=== PATIENT | female | born 1955 | race Caucasian/White ===

== ENCOUNTER 2022-01-17 07:05 | Emergency (ER) | payer MEDICARE, MEDICAID, SELFPAY ==
[2022-01-17] VITALS (10 sets, daily range): BP systolic 93–115; BP diastolic 62–76; PULSE 77–108; RESP 16–25; TEMP 37.5; O2SAT 93–97
--- NOTE | ~2022-01-17 | CT_ITS ---
EXAMINATION: CT brain wo con DATE: 01/17/2022 08:07 INDICATION: Slurred speech. TECHNIQUE: Computed tomography (CT) of the head was performed without intravenous contrast. The mA wa s adjusted according to patient size. Iterative reconstruction technique was employed. The dose-lengt h product was 605.33 mGy-cm. COMPARISON: None FINDINGS: There are scattered areas of low attenuation in the cerebral white matter. There is an old infarct in left frontal lobe. There are old infarcts in the bilateral basal ganglia. There are change s of left suboccipital craniectomy. There are 2 aneurysm clips to the left of the cervical spinal cor d. There are old infarcts in the cerebellum bilaterally. There is an old infarct in the anita. There a re old infarcts in the bilateral basal ganglia. There is no intracranial hemorrhage, acute infarction , or abnormal intracranial mass lesion. The ventricles are normal in size. There is mild mucosal thic kening in the paranasal sinuses. The orbits are normal. There are changes of right mastoidectomy. IMPRESSION: 1. Multiple old infarcts in the brain. 2. Extensive nonspecific cerebral white matter disease, which likely represents chronic small vessel ischemic disease. Reviewed, dictated and finalized at location B.
--- NOTE | ~2022-01-17 | XR_ITS ---
EXAMINATION: XR chest 2V DATE: 01/17/2022 08:13 INDICATION: Weakness TECHNIQUE: AP and lateral views of the chest are obtained. COMPARISON: None available FINDINGS: The lungs are free of acute opacities. No pleural effusion or pneumothorax. The cardiomedia stinal silhouette is normal. There is moderate thoracic spondylosis. Changes of anterior fusion are n oted in the lower cervical spine are noted. IMPRESSION: 1. No acute cardiopulmonary abnormality. Reviewed, dictated and finalized at location A.
--- NOTE | 2022-01-17 07:19 | ED.GENADULT ---
HPI - General Adult General Chief complaint: Weakness Stated complaint: gen weak, flu shot yest Time Seen by Provider: 01/17/22 07:06 History of Present Illness HPI narrative: 66-year-old female presents from the [facility]. Patient states that she is here because she wet myself . Upon obtaining further details of history patient states that she wet herself last night while in bed. She also admits that after she used the restroom she felt too weak to get off the toilet. The weakness was all over and she is unable to discern how long she has been experiencing the symptoms. Patient is a poor historian. No further history at this time. Related Data Home Medications Medication Instructions Recorded Confirmed gabapentin 300 mg capsule mg 01/17/22 hydrochlorothiazide 12.5 mg tablet mg 01/17/22 lisinopril 20 mg tablet mg 01/17/22 quetiapine 25 mg tablet mg 01/17/22 01/17/22 Allergies Allergy/AdvReac Type Severity Reaction Status Date / Time prochlorperazine Allergy Unknown Verified 01/17/22 06:48 [From Compazine] Review of Systems Review of Systems: CONSTITUTIONAL: Denies fever, chills, or sweats. EYES: Denies visual changes, redness, or discharge. ENT: Denies rhinorrhea, congestion, sore throat, or otalgia. CARDIOVASCULAR: Denies chest pain, palpitations, or edema. RESPIRATORY: Denies cough or dyspnea. GASTROINTESTINAL: Denies abdominal pain, nausea, vomiting, or diarrhea. GENITOURINARY: Denies dysuria or hematuria. SKIN: Denies rash or itching. MUSCULOSKELETAL: Denies back pain, joint pain, or myalgia. NEUROLOGIC: Denies headache, numbness, or weakness. PSYCHIATRIC: Denies anxiety or depression. Exam Narrative: GENERAL: Well-appearing, well-nourished, and in no acute distress. HEAD: Normocephalic, atraumatic. EYES: PERRLA and EOMI. ENT: Nares clear, no rhinorrhea or epistaxis. Mucous membranes moist. NECK: Supple. CHEST: Clear to auscultation. No respiratory distress. HEART: Regular rate and rhythm. No murmur heard. Normal peripheral pulses. ABDOMEN: Soft, nontender, nondistended, normal active bowel sounds. EXTREMITIES: Normal range of motion. No edema. SKIN: Warm, dry, no rash. NEURO: No focal deficits. Alert and disoriented. PSYCH: Normal mood and affect. Course Vital Signs Vital signs: Vital Signs Temperature 99.5 F 01/17/22 06:45 Temperature 99.5 F 01/17/22 06:45 Pulse Rate 95 01/17/22 10:00 Respiratory Rate 21 H 01/17/22 10:00 Blood Pressure 104/65 01/17/22 10:00 Pulse Oximetry 97 01/17/22 07:48 Medical Decision Making MDM Narrative Medical decision making narrative: Work-up is grossly unremarkable including negative chest x-ray, CT head with only chronic findings. Patient has dressed herself and is sitting on the end of the bed requesting discharge home. This is reasonable as her work-up is reassuring. She has been encouraged to follow-up with PCP. Vital Signs Vital Signs: Vital Signs Temperature 99.5 F 01/17/22 06:45 Temperature 99.5 F 01/17/22 06:45 Pulse Rate 95 01/17/22 10:00 Respiratory Rate 21 H 01/17/22 10:00 Blood Pressure 104/65 01/17/22 10:00 Pulse Oximetry 97 01/17/22 07:48 Lab Data Result diagrams: 01/17/22 08:34 01/17/22 08:34 Labs: Lab Results 01/17/22 01/17/22 01/17/22 Range/Units 08:34 08:34 08:34 WBC 7.4 (4.5-10.0) K/mm3 RBC 4.30 (4.2-5.4) M/mm3 Hgb 12.8 (12.0-15.0) g/dL Hct 38.7 (37.0-47.0) % MCV 90.0 (80-100) fl MCH 29.8 (26-34) pg MCHC 33.1 (32-36) g/dl RDW 12.8 (11.5-14.5) % Plt Count 301 (150-375) k/mm3 MPV 9.2 (7.4-10.4) fl Immature Gran % (Auto) 0.3 (0-0.5) % Neut % (Auto) 83.3 H (45.5-73.1) % Lymph % (Auto) 7.2 L (18.3-44.2) % Payne % (Auto) 8.0 (2.6-8.5) % Eos % (Auto) 0.8 (0-4.4) % Baso % (Auto) 0.4 (0.2-1.2) % Lymph # (Auto) 0.53 L (0.9-3.2) K/mm3 Payne # (Auto) 0
--- NOTE | 2022-01-17 07:27 | ECG_ITS ---
Measurements Intervals [place] Rate: 93 P: 49 [place]: 137 QRS: 52 QRSD: 85 T: 66 QT: 355 QTc: 443 Interpretive Statements SINUS RHYTHM NONSPECIFIC ST & T-WAVE ABNORMALITY NO PREVIOUS ECG AVAILABLE FOR COMPARISON Electronically Signed On 01-17-2022 17:22:00 CDT by Sharon Dunn M.D.
--- NOTE | 2022-01-17 07:55 | PC.NURSE ---
pt taken to CT scan at this time
[2022-01-17 08:45] LABS: Basophils Percent Auto 0.4 % (0.2-1.2); Eosinophils Absolute Auto 0.1 K/mm3 (0-0.3); Eosinophils Percent Auto 0.8 % (0-4.4); Hematocrit 38.7 % (37.0-47.0); Hemoglobin 12.8 g/dL (12.0-15.0); Immature Granulocyte Absolute 0.02 K/mm3 (0.00-0.031); Immature Granulocyte Percent A 0.3 % (0-0.5); Lymphocytes Absolute Auto 0.53 K/mm3 (0.9-3.2); Lymphocytes Percent Auto 7.2 % (18.3-44.2); Mean Corpuscular HGB Conc 33.1 g/dl (32-36); Mean Corpuscular Hemoglobin 29.8 pg (26-34); Mean Platelet Volume 9.2 fl (7.4-10.4); Monocytes Absolute Auto 0.6 K/mm3 (0.1-0.6); Neutrophils Absolute Auto 6.2 K/mm3 (1.3-6.7); Neutrophils Percent Auto 83.3 % (45.5-73.1); Platelet Count Result 301 k/mm3 (150-375); Red Cell Distribution Width 12.8 % (11.5-14.5); White Blood Count 7.4 K/mm3 (4.5-10.0)
[2022-01-17 08:54] LABS: Anion Gap 12 mmol/L (8-16); Blood Urea Nitrogen 37 mg/dL (7-17); Calcium 9.1 mg/dL (8.4-10.2); Carbon Dioxide 28 mmol/L (22-30); Chloride 98 mmol/L (98-107); Estimated CRCL calculation 41 ml/min; Estimated Glomerular Filt Rate 56; Glucose 96 mg/dL (65-110); Magnesium 2.3 mg/dL (1.6-2.3); Potassium 3.8 mmol/L (3.4-5.0); Sodium 138 mmol/L (137-145)
[2022-01-17 09:02] LABS: NT Pro B Type Natriuretic Pept 239 pg/mL (5-100)
[2022-01-17 09:09] LABS: Appearance Urine Clear (Clear); Bilirubin Urine Negative (Negative); Blood Urine Negative (Negative); Color Urine Yellow (Yellow); Glucose Urine UA Negative (Negative); Ketones Urine Negative (Negative); Leukocyte Esterase Ur Negative LEU/UL (Negative); Nitrate Urine Negative (Negative); Protein Urine Negative (Negative); Specific Grav Ur 1.025 (1.001-1.035); Urobilinogen Urine 0.2 mg/dL (<2.0); pH Urine 5.5 (5.0-9.0)
[2022-01-17 09:16] LABS: Digoxin < 0.4 ng/mL (0.8-2.0)
[2022-01-17 09:36] LABS: Add Urine Microscopic? NO
--- NOTE | 2022-01-17 13:34 | PCCCNOTE ---
Phone call received from charge gang weigher, Pepper to help with transportation, they had called [facility] and they do not have any transportation for the patient. Cab voucher written, [employer] cab called, and they will be at the ER w/in 20 minutes. Cab voucher provided to triage to give to the cab and the patient is sitting on the bench in front of triage awaiting transportation.
== END 2022-01-17 13:35 | disposition home or self-care (01) ==
PROVIDERS: Emergency Provider Emergency Medicine
DX: R53.1 Weakness (principal)
CPT/HCPCS: 36415; 70450; 71045; 71046; 80048; 80162; 81003; 83735; 83880; 85025; 93005; 99284

== ENCOUNTER → 2022-05-15 15:24 | Outpatient (CLI) | payer MEDICARE, MEDICAID, SELFPAY ==
--- NOTE | ~2022-05-15 | XR_ITS ---
EXAMINATION: XR sacrum coccyx min 2V INDICATION: Pain after fall TECHNIQUE: Three views of the sacrum and coccyx are obtained. COMPARISON: None available FINDINGS: The bones are osteopenic which limits the sensitivity for fracture however none is seen. Th ere is moderate lower lumbar spondylosis. There are phleboliths of the left pelvis. Small soft tissue calcifications are noted posteriorly. IMPRESSION: 1. No acute osseous abnormality, sensitivity limited by osteopenia. Reviewed, dictated and finalized at location L. 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
== END ==
PROVIDERS: PCP Family Medicine; Visit Provider Family Medicine
DX: M54.50 Low back pain, unspecified (principal)
CPT/HCPCS: 72220

== ENCOUNTER 2022-10-06 12:03 | Inpatient (IN) | payer MEDICARE, MEDICAID, SELFPAY ==
--- NOTE | ~2022-10-06 | CT_ITS ---
CT head without contrast Indication: Right leg weakness COMPARISON: 01/17/2022 Technique: Serial scans were obtained through the brain without the administration of contrast. Dose reduction technique was used on this scan by utilizing automated exposure control and iterative recon struction technique. The dose-length product (DLP) was 605.33 mGy-cm. Findings: There is no evidence of intracranial hemorrhage, mass lesion, or acute infarct. Focal chron ic left frontal lobe infarct is unchanged. The ventricles and subarachnoid spaces are dilated, consis tent with mild atrophy. Low attenuation regions are seen within the periventricular white matter natalie aterally, likely representing changes from chronic microvascular ischemic disease. There is no eviden ce of edema, mass effect or midline shift. Left occipital craniectomy defect is unchanged. The visua lized paranasal sinuses and mastoid air cells are clear. Impression: No definite acute abnormality seen. There is concern for acute ischemia, consider MR for further eval uation. Stable postoperative change in the left posterior fossa. Atrophy and chronic white matter changes, as above. Reviewed, dictated and finalized at location . Impression: No definite acute abnormality seen. There is concern for acute ischemia, consid er MR for further evaluation. Stable postoperative change in the left posterior fossa. Atrophy and chronic white matter changes, as above.
[2022-10-06 12:09] VITALS: BP 99/58; PULSE 66; RESP 14; TEMP 36.4; O2SAT 97
[2022-10-06 12:23] LABS: Basophils Percent Auto 0.4 % (0.2-1.2); Eosinophils Absolute Auto 0.1 K/mm3 (0-0.3); Eosinophils Percent Auto 2.2 % (0-4.4); Hematocrit 33.9 % (37.0-47.0); Hemoglobin 10.8 g/dL (12.0-15.0); Immature Granulocyte Absolute 0.02 K/mm3 (0.00-0.031); Immature Granulocyte Percent A 0.4 % (0-0.5); Lymphocytes Absolute Auto 1.57 K/mm3 (0.9-3.2); Lymphocytes Percent Auto 28.8 % (18.3-44.2); Mean Corpuscular HGB Conc 31.9 g/dl (32-36); Mean Corpuscular Volume 90.9 fl (80-100); Mean Platelet Volume 9.4 fl (7.4-10.4); Monocytes Absolute Auto 0.6 K/mm3 (0.1-0.6); Monocytes Percent Auto 10.3 % (2.6-8.5); Neutrophils Absolute Auto 3.2 K/mm3 (1.3-6.7); Neutrophils Percent Auto 57.9 % (45.5-73.1); Platelet Count Result 300 k/mm3 (150-375); Red Blood Count 3.73 M/mm3 (4.2-5.4); Red Cell Distribution Width 13.2 % (11.5-14.5); White Blood Count 5.5 K/mm3 (4.5-10.0)
[2022-10-06 12:33] LABS: Alanine Aminotransferase 14 U/L (6-35); Albumin Level 4.2 g/dL (3.5-5.1); Alkaline Phosphatase 89 U/L (38-126); Anion Gap 5 mmol/L (8-16); Aspartate Amino Transferase 20 U/L (14-36); Bilirubin,Total 0.3 mg/dL (0.2-1.3); Blood Urea Nitrogen 25 mg/dL (7-17); Carbon Dioxide 27 mmol/L (22-30); Chloride 105 mmol/L (98-107); Estimated CRCL calculation 47 ml/min; Estimated Glomerular Filt Rate > 60; Glucose 80 mg/dL (65-110); Lipase 53 U/L (23-300); Potassium 3.8 mmol/L (3.4-5.0); Sodium 137 mmol/L (137-145)
[2022-10-06 16:59] VITALS: BP 115/66; PULSE 63
[2022-10-06 17:02] VITALS: BP 121/82; PULSE 62
[2022-10-06 17:04] VITALS: BP 116/78; PULSE 64
--- NOTE | 2022-10-06 17:06 | ED.FALL ---
HPI - Fall General Chief Complaint: Fall Stated Complaint: falls Time Seen by Provider: 10/06/22 15:52 History of Present Illness HPI Narrative: This is a 67-year-old female with past history of hypertension, brought in by EMS from her assisted living facility for multiple falls. The patient states that past 2 days she has fallen 12 times. She denies other weakness, chest pain, lightheadedness, bleeding from any source or change in medications. Related Data Home Medications Medication Instructions Recorded Confirmed gabapentin 300 mg capsule mg 01/17/22 hydrochlorothiazide 12.5 mg tablet mg 01/17/22 lisinopril 20 mg tablet mg 01/17/22 quetiapine 25 mg tablet mg 01/17/22 01/17/22 Allergies Allergy/AdvReac Type Severity Reaction Status Date / Time prochlorperazine Allergy Unknown Verified 01/17/22 06:48 [From Compazine] Review of Systems Review of Systems: CONSTITUTIONAL: Denies fever, chills, or sweats. CARDIOVASCULAR: Denies chest pain, palpitations, or edema. RESPIRATORY: Denies cough or dyspnea. GASTROINTESTINAL: Denies abdominal pain, nausea, vomiting, or diarrhea. GENITOURINARY: Denies dysuria or hematuria. SKIN: Denies rash or itching. MUSCULOSKELETAL: Denies back pain, joint pain, or myalgia. NEUROLOGIC: Bilateral leg weakness denies headache, numbness, dizziness, PSYCHIATRIC: Denies anxiety or depression. PMFSH Past Medical History Medical History (Updated 10/06/22 @ 19:38 by George Alonso MD) History of cerebral aneurysm Hypertension Surgical History Surgical History (Updated 10/06/22 @ 17:10 by George Alonso MD) History of cerebral aneurysm repair Social History Social History (Updated 10/06/22 @ 17:10 by George Alonso MD) Smoking status: Current every day smoker Alcohol intake: never Substance use: never Exam Narrative: GENERAL: Well-developed, well-nourished, and in no acute distress. HEAD: Normocephalic, atraumatic. EYES: PERRLA and EOMI. ENT: Nares clear, no rhinorrhea or epistaxis. Mucous membranes moist. Oropharynx without tonsillar hypertrophy exudate or other lesions. NECK: Supple. No adenopathy or masses. No carotid bruits or JVD. There is a well-healed surgical scar to the posterior aspect of the left neck consistent with surgical intervention CHEST: Clear to auscultation. No respiratory distress. No wheezes rales or rhonchi HEART: Regular rate and rhythm. No murmur heard. Normal peripheral pulses. ABDOMEN: Soft, nontender, nondistended, normal active bowel sounds. EXTREMITIES: Normal range of motion. No edema. SKIN: Warm, dry, no rash. NEURO: No focal deficits. Alert and oriented x3. Strength 5-/5 in the left lower extremity, strength 5/5 in the remaining extremities, sensation intact bilaterally. No noted ataxia PSYCH: Normal mood and affect. Course Course Emergency Course: 18:16 - UA (by straight cath) demonstrates white blood cells, leukocyte esterase and bacteria. I suspect the patient's symptoms are related to UTI. CBC demonstrates anemia with hemoglobin of 10.8 which is decreased from 12.81-year ago. Chemistries are unremarkable. The patient's CT head is not concerning for acute intracranial process though does show chronic left frontal lobe infarct and stable left posterior fossa surgical changes. 18:31 - The patient's assisted living facility, who is not comfortable with return. I discussed the patient with hospitalist SCOUT Strauss who accepts admission. Vital Signs Vital signs: Vital Signs Temperature 97.6 F 10/06/22 12:09 Pulse Rate 66 10/06/22 12:09 Respiratory Rate 14 10/06/22 12:09 Blood Pressure 99/58 L 10/06/22 12:09 Pulse Oximetry 97 10/06/22 12:09 Oxygen Delivery Room Air 10/06/22 12:09 Temperature 97.6 F 10/06/22 12:09 Pulse Rate 64 10/06/22 17:04 Respiratory Rate 14 10/06/22 12:09 Blood Pressure 116/78 10/06/22 17:04 Pulse Oximetry 97 10/06/22 12:09 Oxygen Delivery
--- NOTE | 2022-10-06 17:11 | ECG_ITS ---
Measurements Intervals [place] Rate: 57 P: 23 [place]: 154 QRS: 23 QRSD: 77 T: 57 QT: 451 QTc: 442 Interpretive Statements SINUS BRADYCARDIA NONSPECIFIC ST AND T-WAVE ABNORMALITY ABNORMAL ECG COMPARED TO ECG 01/17/2022 08:25:57 SINUS BRADYCARDIA NOW PRESENT MYOCARDIAL INFARCT FINDING NOW PRESENT Electronically Signed On 10-07-2022 10:37:49 CDT by Alexx Crenshaw M.D.
[2022-10-06 17:46] LABS: Appearance Urine Clear (Clear); Bacteria Urine 2+ /hpf; Bilirubin Urine Negative (Negative); Blood Urine Negative (Negative); Color Urine Yellow (Yellow); Glucose Urine UA Negative (Negative); Ketones Urine Negative (Negative); Leukocyte Esterase Ur Trace LEU/UL (Negative); Nitrate Urine Negative (Negative); Non Pathogenic Casts 0-2; Protein Urine Negative (Negative); RBC Urine 0-2 /hpf (0-2); Squamous Epithelial Cell Urine None seen /hpf (Few); Urobilinogen Urine 0.2 mg/dL (<2.0)
[2022-10-06 17:47] LABS: Add Urine Microscopic? YES
[2022-10-06 17:59] LABS: Amphetamine Screen Urine Negative (Negative); Barbiturate Screen Urine Negative (Negative); Benzodiazepines Screen Urine Negative (Negative); Cannabinoid Screen Urine Negative (Negative); Cocaine Screen Urine Negative (Negative); Methadone Screen Urine Negative (Negative); Opiate Screen Urine Negative (Negative); Phencyclidine Screen Urine Negative (Negative)
[2022-10-06 19:51] VITALS: BP 142/77; PULSE 57; RESP 13; TEMP 36.4; O2SAT 100; BMI 21.6
--- NOTE | 2022-10-06 19:51 | ADMGEN ---
This patient, Ruchi Vicente, was admitted to Medical Room 345-. Patient/family oriented to hospital policies and general routines including ID bracelet, bed and alarms, visiting hours, pain management, procedures, bathroom and other care routines, personal items, smoking policy, room service/diet, and visiting hours. Information on how to activate the Rapid Response Team has been discussed. Patient/Family are encouraged to report perceived risks to care and to ask questions if they do not understand what they are told or what they should do.
[2022-10-06 21:20] VITALS: BP 129/70; PULSE 80; RESP 13; TEMP 36.9; O2SAT 96
--- NOTE | 2022-10-06 21:42 | PM.IMHP ---
H&P: HPI History of Present Illness Date/Time: 10/06/22 21:42 Chief Complaint: Fall Narrative: This is her female with a past medical history of hypertension. [facility]. The patient had fallen at least 12 times in last 2 days. The patient stated she has had a history of surgery to the right lower extremity and she has weakness to that right leg. Her H&H is 10.8 and 33.9. The patient was positive for UTI and was started on Rocephin. Her toxicology screen was negative. Head CT was read asNo definite acute abnormality seen. There is concern for acute ischemia, consider MR for further evaluation. Stable postoperative change in the left posterior fossa. Atrophy and chronic white matter changes, as above.The patient was started on Rocephin. Patient is being admitted to observation on the date of service 10/06/22 Review of Systems Review of Systems: All systems reviewed & are unremarkable except as noted in HPI and below Constitutional: Constitutional: Reports as per HPI and Reports no additional constitutional complaints Eyes: Eyes: Reports as per HPI and Reports no additional eye complaints ENT: Reports system reviewed and no additional complaints, except as documented and Reports Normal hearing present Cardiovascular: Cardiovascular: Reports no additional cardiovascular complaints Respiratory: Respiratory: Reports no additional respiratory complaints and Reports no additional respiratory complaints Gastrointestinal: Gastrointestinal: Reports as per HPI and Reports no additional gastrointestinal complaints Musculoskeletal: Musculoskeletal: Reports no additional musculoskeletal complaints Integumentary/Breasts: Skin/Breast: Reports system reviewed and no additional complaints, except as docu and Reports as per HPI Neurologic: Reports system reviewed and no additional complaints, except as documented, Reports as per HPI and Reports Normal hearing present Psychiatric: Psychiatric: Reports no additional psychiatric complaints and Reports as per HPI Endocrine: Endocrine: Reports no additional endocrine complaints Hematologic/Lymphatic: Hematologic/Lymphatic: Reports no additional hematologic/lymphatic complaints Allergic/Immunologic: Allergic/Immunologic: Reports no additional allergic/immunologic complaints [facility] Past Medical History Medical History (Updated 10/06/22 @ 23:46 by Rica Mon NP) Depression with anxiety History of cerebral aneurysm HTN (hypertension), benign Hypertension Migraine Neuropathy Tobacco abuse Surgical History Surgical History (Updated 10/06/22 @ 23:50 by Rica Mon NP) H/O: hysterectomy History of appendectomy History of cerebral aneurysm repair History of surgery on lower extremity Hx of cholecystectomy S/P tonsillectomy and adenoidectomy Family History Family History (Updated 10/06/22 @ 23:46 by Rica Mon NP) Mother Cancer Father Emphysema lung Social History Social History (Updated 10/06/22 @ 23:49 by Rica Mon NP) Social History: The patient comes from [facility]. She has 2 children. She smokes a pack a cigarettes a day. She is retired. She is Code status full code Smoking packs per day: 1 Smoking cigarettes per day: 20.0 Smoking status: Current every day smoker Tobacco type: cigarettes Additional smoking assessment comments: REQUEST NICOTINE PATCH Alcohol intake: never Substance use: never Lack of Transportation: No Lack of Food: Never True Current Housing: I Have Housing Concerned About Future Housing: No Difficulty Paying Gas/Electric Bills: No Difficulty Paying for Meds: No Currently Unemployed: No Education: Don't Know Difficulty w/ Childcare or Family Care: No Spiritual care concerns: No Meds Home Medications and Allergies Home Medications Medication Instructions Recorded Confirmed
[2022-10-06] MEDS: MELATONIN 5 MG TABLET PO (23:36)
[2022-10-06] MEDS: NICOTINE (*PBKC) 21 MG PATCH 1 PATCH TRANSDERM (23:38)
[2022-10-07] VITALS (11 sets, daily range): BP systolic 102–125; BP diastolic 58–76; PULSE 56–78; RESP 14–18; TEMP 36.2–36.7; O2SAT 97–100
[2022-10-07 00:02] LABS: Hematocrit 34.3 % (37.0-47.0); Hemoglobin 10.9 g/dL (12.0-15.0)
[2022-10-07] MEDS: GABAPENTIN 300 MG CAPSULE PO ×3 (01:14→17:39)
[2022-10-07] MEDS: QUEtiapine FUMARATE 25 MG TABLET 50 MG PO ×2 (01:14→20:32)
[2022-10-07 05:41] LABS: Basophils Percent Auto 0.6 % (0.2-1.2); Eosinophils Absolute Auto 0.1 K/mm3 (0-0.3); Eosinophils Percent Auto 2.3 % (0-4.4); Hematocrit 35.7 % (37.0-47.0); Hemoglobin 11.4 g/dL (12.0-15.0); Immature Granulocyte Absolute 0.02 K/mm3 (0.00-0.031); Immature Granulocyte Percent A 0.4 % (0-0.5); Lymphocytes Absolute Auto 1.75 K/mm3 (0.9-3.2); Lymphocytes Percent Auto 36.7 % (18.3-44.2); Mean Corpuscular HGB Conc 31.9 g/dl (32-36); Mean Corpuscular Hemoglobin 29.2 pg (26-34); Mean Corpuscular Volume 91.3 fl (80-100); Mean Platelet Volume 9.1 fl (7.4-10.4); Monocytes Absolute Auto 0.5 K/mm3 (0.1-0.6); Monocytes Percent Auto 9.6 % (2.6-8.5); Neutrophils Absolute Auto 2.4 K/mm3 (1.3-6.7); Neutrophils Percent Auto 50.4 % (45.5-73.1); Platelet Count Result 278 k/mm3 (150-375); Red Blood Count 3.91 M/mm3 (4.2-5.4); Red Cell Distribution Width 13.1 % (11.5-14.5); White Blood Count 4.8 K/mm3 (4.5-10.0)
[2022-10-07 05:51] LABS: Anion Gap 6 mmol/L (8-16); Blood Urea Nitrogen 25 mg/dL (7-17); Calcium 9.1 mg/dL (8.4-10.2); Carbon Dioxide 29 mmol/L (22-30); Chloride 102 mmol/L (98-107); Estimated CRCL calculation 47 ml/min; Estimated Glomerular Filt Rate > 60; Glucose 85 mg/dL (65-110); Lactic Acid Reflex 0.6 mmol/L (0.7-2.0); Magnesium 2.3 mg/dL (1.6-2.3); Potassium 3.6 mmol/L (3.4-5.0); Sodium 137 mmol/L (137-145)
[2022-10-07] MEDS: FLUoxetine HCL 20 MG CAPSULE 40 MG PO (08:47)
[2022-10-07] MEDS: QUEtiapine FUMARATE 12.5 MG TABLET PO (08:47)
[2022-10-07] MEDS: NICOTINE (*PBKC) 21 MG PATCH 1 PATCH TRANSDERM (08:48)
--- NOTE | 2022-10-07 09:00 | PC.NURSE ---
Update given to daughter Ju
--- NOTE | 2022-10-07 10:49 | PC.NURSE ---
Update given to Hao Chan
--- NOTE | 2022-10-07 11:12 | PM.IMPN ---
Progress Note: A&P Assessment and Plan (1) Acute UTI: Code(s): N39.0 - Urinary tract infection, site not specified Status: Acute Assessment and Plan: On IV Rocephin. blood and urine cultures are pending. Tailer antibiotics according to cultures and sensitivities. (2) Multiple falls: Code(s): R29.6 - Repeated falls Status: Acute Assessment and Plan: PT OT evaluation greatly be appreciated. 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 The patient had a CT scan which shows no concern for strokes. (3) Tobacco abuse: Code(s): Z72.0 - Tobacco use Status: Acute Assessment and Plan: The patient is agreeable to nicotine patch. We did discuss smoking cessation for approximately 5 minutes. (4) HTN (hypertension), benign: Code(s): I10 - Essential (primary) hypertension Status: Acute Assessment and Plan: Continue with lisinopril and hydrochlorothiazide. Monitor electrolytes. (5) Neuropathy: Code(s): G62.9 - Polyneuropathy, unspecified Status: Acute Assessment and Plan: Continue with gabapentin (6) Depression with anxiety: Code(s): F41.8 - Other specified anxiety disorders Status: Acute Assessment and Plan: Continue with fluoxetine and Seroquel Subjective Date/time seen: 10/07/22 11:12 Interval history: Patient denies any complaints at this time. She has a flat affect Review of Systems Review of Systems: All systems reviewed & are unremarkable except as noted in HPI and below Constitutional: Constitutional: Reports as per HPI and Reports no additional constitutional complaints Eyes: Eyes: Reports as per HPI and Reports no additional eye complaints ENT: Reports system reviewed and no additional complaints, except as documented and Reports Normal hearing present Cardiovascular: Cardiovascular: Reports no additional cardiovascular complaints Respiratory: Respiratory: Reports no additional respiratory complaints and Reports no additional respiratory complaints Gastrointestinal: Gastrointestinal: Reports as per HPI and Reports no additional gastrointestinal complaints Musculoskeletal: Musculoskeletal: Reports no additional musculoskeletal complaints Integumentary/Breasts: Skin/Breast: Reports system reviewed and no additional complaints, except as docu and Reports as per HPI Neurologic: Reports system reviewed and no additional complaints, except as documented, Reports as per HPI and Reports Normal hearing present Psychiatric: Psychiatric: Reports no additional psychiatric complaints and Reports as per HPI Endocrine: Endocrine: Reports no additional endocrine complaints Hematologic/Lymphatic: Hematologic/Lymphatic: Reports no additional hematologic/lymphatic complaints Allergic/Immunologic: Allergic/Immunologic: Reports no additional allergic/immunologic complaints Exam Const: General: cooperative, healthy appearing, comfortable, no acute distress, well developed, alert, awake, Physically active, average body habitus and well nourished Nutritional Appearance: average body habitus and well nourished Orientation/consciousness: oriented to person and oriented to place Limitations: no limitations HENMT: Head: normal to inspection, No palpable skull fracture present, normocephalic and atraumatic Ears: hearing grossly normal bilaterally and external ears normal Face/Nose/Sinus: Normal external nose present and Normal nares present Eyes: General: appearance normal, both eyes and all related structures Alignment and Position: alignment normal Periorbital: periorbital findings normal Eyelids: eyelids normal Sclera: sclerae normal Pupils: Equal, round and reactive pupils present EOM: EOMs intact bilaterally Neck: Neck: normal visual inspection, full ROM, no lymphadenopathy, trachea midline and supple Chest: Chest palpation & inspection: normal inspection of the chest Resp: Effort &
--- NOTE | 2022-10-07 14:53 | PCPTNOTE ---
On 10/07/22, the student, Reba SAINZ, provided care and completed [facility] documentation on this patient. I have reviewed the student's documentation and agree with the findings.
[2022-10-07] MEDS: MELATONIN 5 MG TABLET PO (20:32)
[2022-10-08] VITALS (14 sets, daily range): BP systolic 98–119; BP diastolic 56–74; PULSE 60–83; RESP 16–18; TEMP 36.4–37.1; O2SAT 96–100
[2022-10-08] MEDS: FLUoxetine HCL 20 MG CAPSULE 40 MG PO (08:24)
[2022-10-08] MEDS: GABAPENTIN 300 MG CAPSULE PO ×3 (08:24→16:49)
[2022-10-08] MEDS: lisinopriL 20 MG TABLET PO (08:24)
[2022-10-08] MEDS: NICOTINE (*PBKC) 21 MG PATCH 1 PATCH TRANSDERM (08:24)
[2022-10-08] MEDS: QUEtiapine FUMARATE 12.5 MG TABLET PO (08:24)
[2022-10-08] MEDS: hydroCHLOROthiazide 12.5 MG CAPSULE PO (08:24)
--- NOTE | 2022-10-08 10:04 | PM.IMPN ---
Progress Note: A&P Assessment and Plan (1) Acute UTI: Code(s): N39.0 - Urinary tract infection, site not specified Status: Acute Assessment and Plan: On IV Rocephin. Urine culture negative. Continue antibiotics for total 3 days (2) Multiple falls: Code(s): R29.6 - Repeated falls Status: Acute Assessment and Plan: PT OT evaluation done. They recommend halfway facility placement. Pending placement Orthostatic blood pressures every shift. 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 The patient had a CT scan which shows no concern for strokes. (3) Tobacco abuse: Code(s): Z72.0 - Tobacco use Status: Acute Assessment and Plan: We did discuss smoking cessation for approximately 5 minutes. (4) HTN (hypertension), benign: Code(s): I10 - Essential (primary) hypertension Status: Acute Assessment and Plan: Continue with lisinopril and hydrochlorothiazide. Monitor electrolytes. (5) Neuropathy: Code(s): G62.9 - Polyneuropathy, unspecified Status: Acute Assessment and Plan: Continue with gabapentin (6) Depression with anxiety: Code(s): F41.8 - Other specified anxiety disorders Status: Acute Assessment and Plan: Continue with fluoxetine and Seroquel Subjective Date/time seen: 10/08/22 10:04 Interval history: No acute complaints Review of Systems Review of Systems: All systems reviewed & are unremarkable except as noted in HPI and below Constitutional: Constitutional: Reports as per HPI and Reports no additional constitutional complaints Eyes: Eyes: Reports as per HPI and Reports no additional eye complaints ENT: Reports system reviewed and no additional complaints, except as documented and Reports Normal hearing present Cardiovascular: Cardiovascular: Reports no additional cardiovascular complaints Respiratory: Respiratory: Reports no additional respiratory complaints and Reports no additional respiratory complaints Gastrointestinal: Gastrointestinal: Reports as per HPI and Reports no additional gastrointestinal complaints Musculoskeletal: Musculoskeletal: Reports no additional musculoskeletal complaints Integumentary/Breasts: Skin/Breast: Reports system reviewed and no additional complaints, except as docu and Reports as per HPI Neurologic: Reports system reviewed and no additional complaints, except as documented, Reports as per HPI and Reports Normal hearing present Psychiatric: Psychiatric: Reports no additional psychiatric complaints and Reports as per HPI Endocrine: Endocrine: Reports no additional endocrine complaints Hematologic/Lymphatic: Hematologic/Lymphatic: Reports no additional hematologic/lymphatic complaints Allergic/Immunologic: Allergic/Immunologic: Reports no additional allergic/immunologic complaints Exam Const: General: cooperative, healthy appearing, comfortable, no acute distress, well developed, alert, awake, Physically active, average body habitus and well nourished Nutritional Appearance: average body habitus and well nourished Orientation/consciousness: oriented to person and oriented to place Limitations: no limitations HENMT: Head: normal to inspection, No palpable skull fracture present, normocephalic and atraumatic Ears: hearing grossly normal bilaterally and external ears normal Face/Nose/Sinus: Normal external nose present and Normal nares present Eyes: General: appearance normal, both eyes and all related structures Alignment and Position: alignment normal Periorbital: periorbital findings normal Eyelids: eyelids normal Sclera: sclerae normal Pupils: Equal, round and reactive pupils present EOM: EOMs intact bilaterally Neck: Neck: normal visual inspection, full ROM, no lymphadenopathy, trachea midline and supple Chest: Chest palpation & inspection: normal inspection of the chest Resp: Effort & Inspection: normal respiratory effort Auscultation: wheezes Cardio: Palpa
--- NOTE | 2022-10-08 13:07 | PCPTNOTE ---
Attempted to see patient for PT, however patient was eating lunch.
[2022-10-08] MEDS: QUEtiapine FUMARATE 25 MG TABLET 50 MG PO ×2 (20:18→20:24)
[2022-10-08] MEDS: MELATONIN 5 MG TABLET PO (20:25)
[2022-10-09] VITALS (14 sets, daily range): BP systolic 97–115; BP diastolic 61–72; PULSE 57–77; RESP 16–18; TEMP 36.8–36.9; O2SAT 95–98
[2022-10-09] MEDS: lisinopriL 20 MG TABLET PO (08:40)
[2022-10-09] MEDS: hydroCHLOROthiazide 12.5 MG CAPSULE PO (08:40)
[2022-10-09] MEDS: QUEtiapine FUMARATE 12.5 MG TABLET PO (08:40)
[2022-10-09] MEDS: NICOTINE (*PBKC) 21 MG PATCH 1 PATCH TRANSDERM (08:40)
[2022-10-09] MEDS: FLUoxetine HCL 20 MG CAPSULE 40 MG PO (08:40)
[2022-10-09] MEDS: GABAPENTIN 300 MG CAPSULE PO ×3 (08:40→16:33)
--- NOTE | 2022-10-09 11:44 | WPDNEURCNPN ---
Assessment and Plan Assessment and plan (1) Multiple falls: Code(s): R29.6 - Repeated falls Status: Acute (2) Acute UTI: Code(s): N39.0 - Urinary tract infection, site not specified Status: Acute (3) Neuropathy: Code(s): G62.9 - Polyneuropathy, unspecified Status: Acute Plan Ms. Vicente is a 67 year old female with a documented history of hypertension and diabetes currently admitted due to UTI. Family has raised concerns regarding Parkinson's disease but they are not available to provide additional history today. It can be challenging to make a diagnosis while patient is currently admitted for other issues, as that can confound patient's exam, which is why it is typically done in an outpatient setting. She does have some bradykinesia and gait instability but it is unclear what her baseline is and she also has a history of neuropathy which can also cause gait dysfunction. I would be okay doing a Sinemet trial for patient, but she would need close follow-up to assess response and side-effects, which I am concerned she may not be able to do with her current insurance situation, as mentioned by family. Will try calling family tomorrow to get additional history. Consult date: 10/09/22 Time Seen: 11:44 Reason for consult: Concern for Parkinson's HPI: Ruchi Vicente is a 67 year old female with a history of hypertension presenting due to falls. Patient presented due to falling 12 times during the two days prior to admission. There have been reports of surgery to right lower extremity with weakness.When she presented to the ER, she was notably positive for a UTI and started on antibiotics. Her CT head showed no acute abnormalities. Family has rraised concerns regarding a diagnosis of Parkinson's disease, although there is no family at bedside to give history. They have asked for Neurology consultation because patient's insurance has prevented her from being able to see an outpatient provider. History was mostly obtained by patient, but she cannot provide any significant details. Patient does report a history of gait instability that worsened about a year ago. She has been using a walker for the past year. She lives in a alf. She denies any tremor. Her voice is hoarse but she denies any dysphagia. She denies any numbness in the lower extremities. Attempted to call daughter for additional information, but she was not able to take my call today. Review of Systems Constitutional: Constitutional: Denies chills, Denies fever(s) and Denies weight loss Eyes: Eyes: Denies diplopia and Denies loss of vision ENT: Denies dizziness, Denies hearing loss and Denies tinnitus Cardiovascular: Cardiovascular: Denies chest pain, Denies syncope and Denies dyspnea Respiratory: Respiratory: Denies cough, Denies dyspnea and Denies wheezing Gastrointestinal: Gastrointestinal: Denies abdominal pain, Denies change in bowel habits and Denies vomiting Genitourinary: Genitourinary: Denies urinary incontinence Musculoskeletal: Musculoskeletal: Reports arthralgias and Denies joint swelling Integumentary/Breasts: Skin/Breast: Denies new lesions and Denies rash Neurologic: Reports as per HPI, Denies dizziness, Denies syncope and Denies loss of vision Psychiatric: Psychiatric: Denies anxiety and Denies depression Endocrine: Endocrine: Denies cold intolerance and Denies heat intolerance Hematologic/Lymphatic: Hematologic/Lymphatic: Denies easy bleeding and Denies easy bruising Allergic/Immunologic: Allergic/Immunologic: Denies no additional allergic/immunologic complaints and Denies wheezing PMFSH Past Medical History Medical History Depression with anxiety History of cerebral aneurysm HTN (hypertension), benign Hypertension Migraine Neuropathy Tobacco abuse Surgical History Surgical History H/O: hysterectomy Hist
--- NOTE | 2022-10-09 13:35 | PM.IMPN ---
Progress Note: A&P Assessment and Plan (1) Acute UTI: Code(s): N39.0 - Urinary tract infection, site not specified Status: Acute Assessment and Plan: On IV Rocephin. Urine culture negative. Continue antibiotics for total 3 days Dc tomorrow (2) Multiple falls: Code(s): R29.6 - Repeated falls Status: Acute Assessment and Plan: PT OT evaluation done. They recommend [facility]. Neurology consulted to check for Parkinson or Parkinsonism Order Speech theraphy to check swallow (3) Tobacco abuse: Code(s): Z72.0 - Tobacco use Status: Acute Assessment and Plan: We did discuss smoking cessation for approximately 5 minutes. (4) HTN (hypertension), benign: Code(s): I10 - Essential (primary) hypertension Status: Acute Assessment and Plan: Continue with lisinopril and hydrochlorothiazide. watch kidney function (5) Neuropathy: Code(s): G62.9 - Polyneuropathy, unspecified Status: Acute Assessment and Plan: Continue with gabapentin (6) Depression with anxiety: Code(s): F41.8 - Other specified anxiety disorders Status: Acute Assessment and Plan: Continue with fluoxetine and Seroquel Subjective Date/time seen: 10/09/22 13:35 Interval history: Pt is here with UTI and slowness bradykinesis possible Parkinson. Pt seen by neurology awaiting further evaluation We noticed slowness with chewing food Review of Systems Review of Systems: Bradykinesis Exam Const: General: cooperative, healthy appearing, comfortable, no acute distress, well developed, alert, awake, Physically active, average body habitus and well nourished Nutritional Appearance: average body habitus and well nourished Orientation/consciousness: oriented to person, oriented to place, oriented to time and patient oriented x3 Limitations: no limitations Resp: Effort & Inspection: normal respiratory effort Auscultation: wheezes Cardio: Palpation: normal PMI Rate: bradycardic Rhythm: regular rhythm Heart sounds: S1 normal heart sound present and S2 normal heart sound present Peripheral pulses: Peripheral pulses 2+ throughout GI: Inspection: normal to inspection Auscultation: normal bowel sounds Rectal Exam: deferred Neuro: General: oriented to person, oriented to place, oriented to time and patient oriented x3 Cranial nerves: Yes Equal, round and reactive pupils present and Yes Normal hearing present Cognition (Neuro): normal cognition Speech: normal speech Gait exam (Neuro): Normal gait present Sensory Exam: normal sensation Psych: Appearance: grossly normal Mental Status: mental status grossly normal Speech and movement: Slowed speech present (Psych) Affect: normal affect Attitude: cooperative Thought process: Normal thought process present Insight: Fair insight present (Psych) Judgement: Fair judgement present (Psych) Objective Data Vital Signs Vital Signs: Vital Signs - 24 hr 10/08/22 14:00 10/08/22 16:00 10/08/22 19:55 Temperature 36.8 C 37.1 C Pulse Rate 64 64 65 Respiratory Rate 18 16 Blood Pressure 103/56 L 98/61 L Pulse Oximetry 100 96 Oxygen Delivery 10/08/22 19:58 10/08/22 20:02 10/08/22 20:00 Temperature Pulse Rate 75 83 83 Respiratory Rate 16 Blood Pressure 107/74 119/69 Pulse Oximetry 96 Oxygen Delivery Room Air 10/09/22 00:00 10/09/22 04:05 10/09/22 04:00 Temperature 36.9 C Pulse Rate 63 58 L 57 L Respiratory Rate 18 Blood Pressure 105/65 Pulse Oximetry 95 Oxygen Delivery 10/09/22 08:40 10/09/22 08:35 10/09/22 08:00 Temperature Pulse Rate 57 L Respiratory Rate Blood Pressure 115/68 Pulse Oximetry Oxygen Delivery Room Air 10/09/22 12:00 Temperature Pulse Rate 71 Respiratory Rate Blood Pressure Pulse Oximetry Oxygen Delivery Intake/Output Intake/Output: Intake & Output 10/06/22
[2022-10-09] MEDS: QUEtiapine FUMARATE 25 MG TABLET 50 MG PO (20:29)
[2022-10-09] MEDS: MELATONIN 5 MG TABLET PO (20:29)
[2022-10-10] VITALS (14 sets, daily range): BP systolic 104–125; BP diastolic 60–79; PULSE 55–79; RESP 16; TEMP 36.3–36.9; O2SAT 96–100
[2022-10-10] MEDS: GABAPENTIN 300 MG CAPSULE PO ×3 (08:06→17:33)
[2022-10-10] MEDS: QUEtiapine FUMARATE 12.5 MG TABLET PO (08:06)
[2022-10-10] MEDS: NICOTINE (*PBKC) 21 MG PATCH 1 PATCH TRANSDERM (08:06)
[2022-10-10] MEDS: hydroCHLOROthiazide 12.5 MG CAPSULE PO (08:06)
[2022-10-10] MEDS: lisinopriL 20 MG TABLET PO (08:06)
[2022-10-10] MEDS: FLUoxetine HCL 20 MG CAPSULE 40 MG PO (08:06)
--- NOTE | 2022-10-10 10:23 | PCSTNOTE ---
Please refer to the Bedside Swallow Evaluation in the EMR. Please note, silent aspiration cannot be ruled out at bedside.
--- NOTE | 2022-10-10 11:53 | WPDNEUROPN ---
Progress Note: A&P Assessment and Plan (1) Multiple falls: Code(s): R29.6 - Repeated falls Status: Acute (2) Acute UTI: Code(s): N39.0 - Urinary tract infection, site not specified Status: Acute (3) Neuropathy: Code(s): G62.9 - Polyneuropathy, unspecified Status: Acute (4) Depression with anxiety: Code(s): F41.8 - Other specified anxiety disorders Status: Acute (5) Dementia: Code(s): F03.90 - Unspecified dementia, unspecified severity, without behavioral disturbance, psychotic disturbance, mood disturbance, and anxiety Status: Acute Plan Ms. Vicente is a 67 year old female with a documented history of hypertension and diabetes currently admitted due to UTI. Family has raised concerns regarding Parkinson's disease but they are not available to provide additional history today. It can be challenging to make a diagnosis while patient is currently admitted for other issues, as that can confound patient's exam, which is why it is typically done in an outpatient setting. She does have some bradykinesia and gait instability but it is unclear what her baseline is and she also has a history of neuropathy which can also cause gait dysfunction. I would be okay doing a Sinemet trial for patient, but she would need close follow-up to assess response and side-effects. There also seems to be a component of dementia as well. Could be Lewy Body dementia -- she is having some delusional thoughts but no clear hallucinations. Unable to get MRI brain due to prior aneurysmal clipping, but CT did show diffuse volume loss. - Check TSH, B12, folate level - Will start Sinemet 25-100mg tablet daily x 3 days, then BID x 3 days, then TID - Will need close follow-up to assess response and side effects Subjective Date/time seen: 10/10/22 11:53 Interval history: Ruchi Vicente is a 67 year old female with a history of hypertension presenting due to falls. Patient presented due to falling 12 times during the two days prior to admission. There have been reports of surgery to right lower extremity with weakness.When she presented to the ER, she was notably positive for a UTI and started on antibiotics. Her CT head showed no acute abnormalities. Family has rraised concerns regarding a diagnosis of Parkinson's disease, although there is no family at bedside to give history. They have asked for Neurology consultation because patient's insurance has prevented her from being able to see an outpatient provider. History was mostly obtained by patient, but she cannot provide any significant details. Patient does report a history of gait instability that worsened about a year ago. She has been using a walker for the past year. She lives in a care home. She denies any tremor. Her voice is hoarse but she denies any dysphagia. Discussed with patient's daughter. About 2.5 years ago, patient started to have some memory loss, mood swings. She attempted suicide about 2 years ago, and since then she has started to decline. Daughter reports that she is unable to organize her thoughts and make decisions. She has also not been able to take care of her finances. She has been having some delusional thoughts -- thought she was going to be kicked out of assited living. She has been having urinary incontinence and falling more than usual, as well as having shuffling gait and overall been more withdrawn. Daughter is not sure if patient is hallucination.She had a CT head done during this admission that showed diffuse volume loss. Per daughter patient had an aneurysm clipped thirty years ago, so she has not been able to have an MRI done. Review of Systems Constitutional: Constitutional: Denies chills, Denies fever(s) and Denies weight loss Eyes: Eyes: Denies diplopia and Denies loss of vision ENT: Denies dizziness, Denies hearing loss and Denies tinnitus Cardiovascular: Cardiovascular: Denies chest pain, Denies syncope and Denies dyspnea
--- NOTE | 2022-10-10 12:16 | PM.IMPN ---
Progress Note: A&P Assessment and Plan (1) Acute UTI: Code(s): N39.0 - Urinary tract infection, site not specified Status: Acute Assessment and Plan: On IV Rocephin. Urine culture negative. Continue antibiotics for total 3 days (2) Multiple falls: Code(s): R29.6 - Repeated falls Status: Acute Assessment and Plan: PT OT evaluation done. They recommend assisted facility placement. Neurology consulted to check for Parkinson started on Sinemet taper Awaiting SNF placement pt will benefit from ST at facility (3) Tobacco abuse: Code(s): Z72.0 - Tobacco use Status: Acute Assessment and Plan: We did discuss smoking cessation for approximately 5 minutes. (4) HTN (hypertension), benign: Code(s): I10 - Essential (primary) hypertension Status: Acute Assessment and Plan: Continue with lisinopril and hydrochlorothiazide. watch kidney function (5) Neuropathy: Code(s): G62.9 - Polyneuropathy, unspecified Status: Acute Assessment and Plan: Continue with gabapentin (6) Depression with anxiety: Code(s): F41.8 - Other specified anxiety disorders Status: Acute Assessment and Plan: Continue with fluoxetine and Seroquel Subjective Date/time seen: 10/10/22 12:16 Interval history: Pt is here with UTI and slowness bradykinesis possible Parkinson. Pt seen by neurology awaiting further evaluation We noticed slowness with chewing food Pt had swallow test passed able to swallow regular diet and liquids at this time Pt likely has Parkinson sinemet taper ordered by neurology Pt will benefit from ST at the facility on [place] Review of Systems Review of Systems: slowness and weakness Exam Const: General: cooperative, healthy appearing, comfortable, no acute distress, well developed, alert, awake, Physically active, average body habitus and well nourished Nutritional Appearance: average body habitus and well nourished Orientation/consciousness: oriented to person, oriented to place, oriented to time and patient oriented x3 Limitations: no limitations HENMT: Head: normal to inspection, No palpable skull fracture present, normocephalic and atraumatic Ears: hearing grossly normal bilaterally and external ears normal Face/Nose/Sinus: Normal external nose present and Normal nares present Eyes: General: appearance normal, both eyes and all related structures Alignment and Position: alignment normal Periorbital: periorbital findings normal Eyelids: eyelids normal Sclera: sclerae normal Pupils: Equal, round and reactive pupils present EOM: EOMs intact bilaterally Neck: Neck: normal visual inspection, full ROM, no lymphadenopathy, trachea midline and supple Chest: Chest palpation & inspection: normal inspection of the chest Resp: Effort & Inspection: normal respiratory effort Auscultation: wheezes Cardio: Palpation: normal PMI Rate: bradycardic Rhythm: regular rhythm Heart sounds: S1 normal heart sound present and S2 normal heart sound present Peripheral pulses: Peripheral pulses 2+ throughout GI: Inspection: normal to inspection Auscultation: normal bowel sounds Rectal Exam: deferred Back/Spine/Pelvis: Cervical Spine: cervical ROM normal Thoracic/Lumbar Spine: thoracic and lumbar spine normal to inspection Skin: General skin exam: normal color Lesions: no lesions Rashes: no rashes Trauma: no lacerations or abrasions Wounds: no wounds Hair: normal Nails: normal Neuro: General: oriented to person, oriented to place, oriented to time and patient oriented x3 Cranial nerves: Yes Equal, round and reactive pupils present and Yes Normal hearing present Cognition (Neuro): normal cognition Speech: normal speech Gait exam (Neuro): Normal gait present Sensory Exam: normal sensation Extrem: General: normal to inspection Right upper extremity: normal to inspection and shoulder/upper arm Left up
[2022-10-10] MEDS: MELATONIN 5 MG TABLET PO (21:35)
[2022-10-11] VITALS: PULSE 66
[2022-10-11 04:00] VITALS: PULSE 62
[2022-10-11 05:52] LABS: Anion Gap 6 mmol/L (8-16); Blood Urea Nitrogen 29 mg/dL (7-17); Calcium 9.1 mg/dL (8.4-10.2); Carbon Dioxide 28 mmol/L (22-30); Chloride 101 mmol/L (98-107); Estimated CRCL calculation 47 ml/min; Estimated Glomerular Filt Rate > 60; Glucose 89 mg/dL (65-110); Potassium 3.8 mmol/L (3.4-5.0); Sodium 135 mmol/L (137-145)
[2022-10-11 06:00] VITALS: BP 111/61; PULSE 59; RESP 16; TEMP 36.3; O2SAT 98
[2022-10-11 08:00] VITALS: PULSE 64
[2022-10-11] MEDS: hydroCHLOROthiazide 12.5 MG CAPSULE PO (08:10)
[2022-10-11] MEDS: QUEtiapine FUMARATE 12.5 MG TABLET PO (08:10)
[2022-10-11] MEDS: lisinopriL 20 MG TABLET PO (08:11)
[2022-10-11] MEDS: GABAPENTIN 300 MG CAPSULE PO ×2 (08:11→12:34)
[2022-10-11] MEDS: NICOTINE (*PBKC) 21 MG PATCH 1 PATCH TRANSDERM (08:11)
[2022-10-11] MEDS: FLUoxetine HCL 20 MG CAPSULE 40 MG PO (08:11)
--- NOTE | 2022-10-11 09:14 | PM.DS ---
DS: Admitting Diagnosis Discharge Date 10/11/22 Admitting Diagnosis Falls DS: Discharge Diagnosis Discharge Diagnosis (1) Acute UTI: Code(s): N39.0 - Urinary tract infection, site not specified Status: Acute Assessment and Plan: On IV Rocephin. Urine culture negative. Continue antibiotics for total 3 days (2) Multiple falls: Code(s): R29.6 - Repeated falls Status: Acute Assessment and Plan: PT OT evaluation done. They recommend [facility] facility placement. Neurology consulted to check for Parkinson started on Sinemet taper Awaiting SNF placement pt will benefit from ST at facility (3) Tobacco abuse: Code(s): Z72.0 - Tobacco use Status: Acute Assessment and Plan: We did discuss smoking cessation for approximately 5 minutes. (4) HTN (hypertension), benign: Code(s): I10 - Essential (primary) hypertension Status: Acute Assessment and Plan: Continue with lisinopril and hydrochlorothiazide. watch kidney function (5) Neuropathy: Code(s): G62.9 - Polyneuropathy, unspecified Status: Acute Assessment and Plan: Continue with gabapentin (6) Depression with anxiety: Code(s): F41.8 - Other specified anxiety disorders Status: Acute Assessment and Plan: Continue with fluoxetine and Seroquel DS: Summary Hospital Course Hospital Course: 67-year-old female with history of high blood pressure is presenting from assisted living for multiple falls. She was noted to have a UTI and started on antibiotics. PT/OT were evaluated the patient in the recommended [facility] facility at discharge. Neurology was consulted and recommended a trial of Sinemet and outpatient follow-up. Speech therapy was consulted and cleared the patient for regular diet. Please see above and med rec for details. Time Spent with Patient Time attestation: Total time spent providing and/or coordinating discharge services: Exam Narrative: General: No acute distress, alert and oriented per baseline HEENT: Atraumatic, normocephalic, mucous membranes moist CV: Regular rate and rhythm, S1, S2 Lungs: Clear to auscultation bilaterally, no rales or crackles noted, no wheezes, good air entry Abdomen: Soft, nontender, nondistended Extremities: Normal to inspection Skin: No rashes noted, no lesions or wounds seen Psych: Euthymic, normal affect DS: Data Data Completed and Pending Labs on day of discharge: Labs from last 24 hours 10/11/22 05:23 Sodium 135 L Potassium 3.8 Chloride 101 Carbon Dioxide 28 Anion Gap 6 L BUN 29 H Creatinine 0.90 Estim Creat Clear Calc 47 Estimated GFR > 60 Glucose 89 Calcium 9.1 Discharge Plan Discharge Attending physician on discharge: Keely Sanchez Consulting providers: Nayana Chong Discharging Clinician: Keely Sanchez Patient Disposition: SNF Activity: as tolerated Diet: as tolerated Patient Instructions: Antibiotic Form Stand Alone Forms: General Discharge Information Discharge Medications: New carbidopa-levodopa [Sinemet] 25-100 mg tablet 1 tablet PO TID 30 Days Qty: 90 0RF Rx Instructions: take 1 tablet daily x 4 days, then twice daily x 3 days, then three times daily Continued quetiapine 25 mg tablet 12.5 mg PO DAILY lisinopril 20 mg tablet 20 mg PO DAILY gabapentin 300 mg capsule 300 mg PO TID hydrochlorothiazide 12.5 mg tablet 12.5 mg PO BID fluoxetine 40 mg capsule 40 mg PO DAILY [id number] 50-325-40 mg Tablet 1 tablet PO Q4H PRN (Reason: Headache) ergocalciferol (vitamin D2) 1,250 mcg (50,000 unit) capsule 1,250 mcg PO WEEKLY Rx Instructions: 1 capsule po weekly on friday quetiapine 50 mg tablet 50 mg PO QHS Date of admission: 10/07/22 13:31 Primary Care Provider: Jewel,Marlyn Hunt
[2022-10-11 12:00] VITALS: PULSE 61
[2022-10-11 14:00] VITALS: BP 110/67; PULSE 75; RESP 16; TEMP 36.5; O2SAT 99
[2022-10-11 14:27] LABS: SARS-CoV-2 RNA PCR Negative (Negative)
== END 2022-10-11 16:45 | DRG 690 ==
LOC: ANHED 15:52 → ANH3MED 18:50
PROVIDERS: Family Medicine; Nurse Practitioner; Admitting Provider Internal Medicine; Emergency Provider Preventive Medicine Aerospace Medicine; PCP Family Medicine; Visit Provider Student in an Organized Health Care Education/Training Program
DX: N39.0 Urinary tract infection, site not specified (principal); R29.6 Repeated falls; R25.8 Other abnormal involuntary movements; F17.210 Nicotine dependence, cigarettes, uncomplicated; F03.90 Unspecified dementia, unspecified severity, without behavioral disturbance, psychotic disturbance, mood disturbance, and anxiety; F41.8 Other specified anxiety disorders; G62.9 Polyneuropathy, unspecified; I10 Essential (primary) hypertension; Z20.822 Contact with and (suspected) exposure to COVID-19; Z90.710 Acquired absence of both cervix and uterus; Z90.49 Acquired absence of other specified parts of digestive tract
CPT/HCPCS: 36415; 70450; 80048; 80053; 80307; 81001; 83605; 83690; 83735; 84443; 85014; 85018; 85025; 87086; 87635; 92610; 93005; 96365; 97110; 97161; 97165; 97530; 97535; 99285; A9270; G0378; J0696

== ENCOUNTER 2022-10-29 04:40 | Emergency (ER) | payer MEDICARE, MEDICAID, SELFPAY ==
--- NOTE | ~2022-10-29 | XR_ITS ---
Portable chest x-ray Comparison: 01/17/2022 Clinical History: Hypotension Findings: Questionable minimal interstitial edema. No consolidation or pleural effusion. Cardiomedi astinal silhouette is stable. Stable cervical spine fixation hardware. Impression: Questionable minimal interstitial edema. Reviewed, dictated and finalized at [facility]. Impression: Questionable minimal interstitial edema.
[2022-10-29 04:40] VITALS: BP 107/71; PULSE 61; RESP 17; TEMP 36.2; O2SAT 95
--- NOTE | 2022-10-29 04:45 | ECG_ITS ---
Measurements Intervals [place] Rate: 60 P: 23 TX: 151 QRS: 38 QRSD: 73 T: 51 QT: 435 QTc: 436 Interpretive Statements SINUS RHYTHM BASELINE ARTIFACT- I, AVR, AVL, AVF, V1-V2 NORMAL ECG COMPARED TO ECG 10/06/2022 17:42:00 SINUS RHYTHM NOW PRESENT Electronically Signed On 10-29-2022 6:51:38 CDT by Noble Luu D.O.
[2022-10-29] MEDS: SODIUM CHLORIDE 0.9% IV 1,000 ML 999 ML IV CONT (05:24)
[2022-10-29 06:12] LABS: Basophils Percent Auto 0.4 % (0.2-1.2); Eosinophils Absolute Auto 0.1 K/mm3 (0-0.3); Eosinophils Percent Auto 2.2 % (0-4.4); Hematocrit 32.4 % (37.0-47.0); Hemoglobin 10.4 g/dL (12.0-15.0); Immature Granulocyte Absolute 0.02 K/mm3 (0.00-0.031); Immature Granulocyte Percent A 0.4 % (0-0.5); Lymphocytes Absolute Auto 1.59 K/mm3 (0.9-3.2); Lymphocytes Percent Auto 35.6 % (18.3-44.2); Mean Corpuscular HGB Conc 32.1 g/dl (32-36); Mean Corpuscular Hemoglobin 29.6 pg (26-34); Mean Corpuscular Volume 92.3 fl (80-100); Mean Platelet Volume 9.4 fl (7.4-10.4); Monocytes Absolute Auto 0.6 K/mm3 (0.1-0.6); Neutrophils Absolute Auto 2.2 K/mm3 (1.3-6.7); Neutrophils Percent Auto 48.4 % (45.5-73.1); Platelet Count Result 233 k/mm3 (150-375); Red Blood Count 3.51 M/mm3 (4.2-5.4); Red Cell Distribution Width 12.9 % (11.5-14.5); White Blood Count 4.5 K/mm3 (4.5-10.0)
[2022-10-29 06:22] VITALS: BP 124/77; PULSE 75; RESP 21; O2SAT 96
[2022-10-29 06:22] LABS: Alanine Aminotransferase 8 U/L (6-35); Albumin Level 3.4 g/dL (3.5-5.1); Alkaline Phosphatase 76 U/L (38-126); Anion Gap 5 mmol/L (8-16); Aspartate Amino Transferase 15 U/L (14-36); Bilirubin,Total 0.3 mg/dL (0.2-1.3); Blood Urea Nitrogen 32 mg/dL (7-17); Calcium 7.9 mg/dL (8.4-10.2); Carbon Dioxide 26 mmol/L (22-30); Chloride 105 mmol/L (98-107); Estimated CRCL calculation 30 ml/min; Estimated Glomerular Filt Rate 41; Glucose 78 mg/dL (65-110); Potassium 3.9 mmol/L (3.4-5.0); Sodium 136 mmol/L (137-145)
--- NOTE | 2022-10-29 06:23 | ED.FALL ---
HPI - Fall General Chief Complaint: Fall <George Alonso MD - Last Filed: 10/29/22 09:50> Stated Complaint: fall/weakness <George Alonso MD - Last Filed: 10/29/22 09:50> Time Seen by Provider: 10/29/22 04:52 <George Alonso MD - Last Filed: 10/29/22 09:50> History of Present Illness HPI Narrative: This is a 67-year-old female with past history of hypertension, brought in by EMS after a fall at her assisted living facility and noted hypotension. We received notification from the patient's assisted living staff, the patient was attempting to transfer from her bed to her wheelchair, when she slipped, fell and landed on her bottom. She did not hit her head or lose consciousness. Staff noted throughout the day she had somewhat decreased blood pressures ranging in the 90s. After the fall her blood pressure was found to be in the 70s systolic. EMS reports they establish an IV and began giving IV fluids with improvement of her pressures to the 90s systolic. The patient is not sure how she fell. She denies chest pain, shortness of breath, or cough, abdominal pain, or bleeding. <George Alonso MD - Last Filed: 10/29/22 09:50> Related Data Home Medications: Home Medications Medication Instructions Recorded Confirmed gabapentin 300 mg capsule 300 mg PO TID 01/17/22 10/06/22 hydrochlorothiazide 12.5 mg tablet 12.5 mg PO BID 01/17/22 10/06/22 lisinopril 20 mg tablet 20 mg PO DAILY 01/17/22 10/06/22 quetiapine 25 mg tablet 12.5 mg PO DAILY 01/17/22 10/06/22 dldnwskkew-jeufkxwrhztkn-cclltcra 1 tablet PO Q4H PRN Headache 10/06/22 10/06/22 50 mg-325 mg-40 mg tablet ergocalciferol (vitamin D2) 1,250 1,250 mcg PO WEEKLY 10/06/22 10/06/22 mcg (50,000 unit) capsule fluoxetine 40 mg capsule 40 mg PO DAILY 10/06/22 10/06/22 quetiapine 50 mg tablet 50 mg PO QHS 10/06/22 10/06/22 <George Alonso MD - Last Filed: 10/29/22 09:50> Allergies/Adverse Reactions: Allergies Allergy/AdvReac Type Severity Reaction Status Date / Time prochlorperazine Allergy Unknown Verified 01/17/22 06:48 [From Compazine] codeine AdvReac Confusion Verified 10/06/22 20:16 <George Alonso MD - Last Filed: 10/29/22 09:50> Review of Systems Review of Systems: CONSTITUTIONAL: Denies fever, chills, or sweats. CARDIOVASCULAR: Denies chest pain, palpitations, or edema. RESPIRATORY: Denies cough or dyspnea. GASTROINTESTINAL: Denies abdominal pain, nausea, vomiting, or diarrhea. GENITOURINARY: Denies dysuria or hematuria. SKIN: Denies rash or itching. MUSCULOSKELETAL: Denies back pain, joint pain, or myalgia. NEUROLOGIC: Denies headache, numbness, dizziness, or weakness. PSYCHIATRIC: Denies anxiety or depression. <George Alonso MD - Last Filed: 10/29/22 09:50> [facility] Past Medical History Medical History: Medical History Depression with anxiety History of cerebral aneurysm HTN (hypertension), benign Hypertension Migraine Neuropathy Tobacco abuse <George Alonso MD - Last Filed: 10/29/22 09:50> Surgical History Surgical History: Surgical History H/O: hysterectomy History of appendectomy History of cerebral aneurysm repair History of surgery on lower extremity Hx of cholecystectomy S/P tonsillectomy and adenoidectomy <George Alonso MD - Last Filed: 10/29/22 09:50> Family History Family History: Family History Mother Cancer Father Emphysema lung <George Alonso MD - Last Filed: 10/29/22 09:50> Social History Social History: Social History Social History: The patient comes from [facility]. She has 2 children. She smokes a pack a cigarettes a day. She is retired. 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
[2022-10-29 07:01] LABS: Troponin I < 0.012 ng/mL (0.000-0.034)
[2022-10-29 07:47] LABS: Appearance Urine Clear (Clear); Bilirubin Urine Negative (Negative); Blood Urine Negative (Negative); Color Urine Yellow (Yellow); Glucose Urine UA Negative (Negative); Ketones Urine Negative (Negative); Leukocyte Esterase Ur Negative LEU/UL (Negative); Nitrate Urine Negative (Negative); Protein Urine Negative (Negative); Specific Grav Ur 1.008 (1.001-1.035); Urobilinogen Urine 0.2 mg/dL (<2.0); pH Urine 5.5 (5.0-9.0)
[2022-10-29 07:53] VITALS: BP 122/91; PULSE 66; RESP 99; TEMP 36.3; O2SAT 98
[2022-10-29 08:26] LABS: Add Urine Microscopic? NO
[2022-10-29 10:29] VITALS: BP 141/79; PULSE 68; RESP 17; TEMP 36.4; O2SAT 100
== END 2022-10-29 10:33 ==
PROVIDERS: Preventive Medicine Aerospace Medicine; Emergency Provider Emergency Medicine; PCP Family Medicine
DX: I95.9 Hypotension, unspecified (principal); I10 Essential (primary) hypertension; G62.9 Polyneuropathy, unspecified; F41.8 Other specified anxiety disorders; Z90.710 Acquired absence of both cervix and uterus; Z90.49 Acquired absence of other specified parts of digestive tract; F17.210 Nicotine dependence, cigarettes, uncomplicated; W06.XXXA Fall from bed, initial encounter; R91.8 Other nonspecific abnormal finding of lung field
CPT/HCPCS: 36415; 71045; 80053; 81003; 84484; 85025; 93005; 96360; 99284; J7030

== ENCOUNTER 2023-11-28 17:05 | Emergency (ER) | payer MEDICARE, MEDICAID, SELFPAY ==
--- NOTE | ~2023-11-28 | CT_ITS ---
EXAMINATION: CT abdomen pelvis w con DATE: 11/29/2023 04:15 INDICATION: Bilateral flank pain. Urinary retention. TECHNIQUE: Computed tomography (CT) of the abdomen and pelvis was performed with 100 mL Omnipaque-350 intravenous contrast. Automated exposure control and iterative reconstruction technique were employe d. The dose-length product was 226.00 mGy-cm. COMPARISON: None FINDINGS: Mild dependent atelectasis in bilateral lower lobes. Heart size is normal. No pericardial or pleural effusion. Focal hepatic steatosis at the ligamentum teres. Gallbladder, spleen, bilateral adrenal gla nds and kidneys are normal. There is mild dilation of the main pancreatic duct which measures up to 4 -5 mm at the body the pancreas but without evident obstructing stone or mass and with no peripancreat ic inflammatory stranding to suggest acute pancreatitis. Large amount of contrast opacified stool sca ttered throughout the colon which could be seen with constipation. No bowel obstruction. The appendix is not visualized. No pericecal inflammatory change to suggest acute appendicitis. Holden catheter in the decompressed bladder. The uterus is not identified and has likely been surgically resected. Bila teral adnexa are unremarkable. No free intraperitoneal gas or fluid. No pathologically enlarged abdom inal or pelvic lymphadenopathy. Mild superior endplate compression fractures at L2 and L3. IMPRESSION: 1. Mild dilation of the main pancreatic duct with otherwise normal-appearing pancreas. Correlate with lipase levels. 2. Large amount of colonic stool suggestive of constipation. Reviewed, dictated and finalized at location A. IMPRESSION: 1. Mild dilation of the main pancreatic duct with otherwise normal-appearing pa ncreas. Correlate with lipase levels. 2. Large amount of colonic stool suggestive of constipation.
[2023-11-28 17:09] VITALS: BP 146/87; PULSE 77; RESP 18; TEMP 36.5; O2SAT 100
[2023-11-28 22:33] VITALS: BP 152/91; PULSE 72; RESP 22; TEMP 36.6; O2SAT 100
[2023-11-29] VITALS (17 sets, daily range): BP systolic 131–164; BP diastolic 85–94; PULSE 63–75; RESP 15–20; TEMP 36.4–36.5; O2SAT 96–100
--- NOTE | 2023-11-29 00:48 | ED.BACK ---
HPI - Back Pain/Injury General Chief Complaint: Back Pain/Injury <Dino Baker PA-C - Last Filed: 11/29/23 02:57> Stated Complaint: back pain <NUHA Hudson Last Filed: 11/29/23 02:57> Time Seen by Provider: 11/29/23 00:36 <NUHA Hudson Last Filed: 11/29/23 02:57> Source: patient <NUHA Hudson Last Filed: 11/29/23 02:57> Mode of arrival: EMS <NUHA Hudson Last Filed: 11/29/23 02:57> Limitations: no limitations <NUHA Hudson Last Filed: 11/29/23 02:57> History of Present Illness HPI Narrative: this is a 68-year-old female With PMH of HTN, Parkinson's, UTI presenting to the ED via EMS from long term for chief complaint of urinary retention and lower back pain. States this started yesterday morning. She has had significant difficulty with being able to pass urine which she has had in the past with UTIs. denies nausea, vomiting, abdominal pain, fevers, chills, chest pain, shortness of breath, cough, problems with bowel movements. <NUHA Hudson Last Filed: 11/29/23 02:57> Related Data Home Medications: Home Medications Medication Instructions Recorded Confirmed gabapentin 300 mg capsule 300 mg PO TID 01/17/22 08/20/23 quetiapine 25 mg tablet 12.5 mg PO DAILY 01/17/22 08/20/23 pobgmpbytu-wnpzbbaenantw-cmikrune 1 tablet PO Q4H PRN Headache 10/06/22 08/20/23 50 mg-325 mg-40 mg tablet fluoxetine 40 mg capsule 40 mg PO DAILY 10/06/22 08/20/23 acetaminophen 325 mg capsule 325 mg PO Q6H PRN 12/19/22 08/20/23 cholecalciferol (vitamin D3) 125 125 mcg PO DAILY 12/19/22 08/20/23 mcg (5,000 unit) capsule midodrine 2.5 mg tablet 2.5 mg PO BID 12/19/22 08/20/23 cetirizine 10 mg tablet 10 mg PO DAILY PRN 04/23/23 08/20/23 ondansetron 4 mg disintegrating 4 mg PO Q8H 04/23/23 08/20/23 tablet <NUHA Hudson Last Filed: 11/29/23 02:57> Allergies/Adverse Reactions: Allergies Allergy/AdvReac Type Severity Reaction Status Date / Time prochlorperazine Allergy Unknown Verified 11/29/23 01:56 [From Compazine] codeine AdvReac Confusion Verified 11/29/23 01:56 <NUHA Hudson Last Filed: 11/29/23 02:57> Review of Systems Review of Systems: All systems as dictated in HPI <NUHA Hudson Last Filed: 11/29/23 02:57> COUNT INCLUDES THE [facility] Past Medical History Medical History: Medical History Depression with anxiety History of cerebral aneurysm HTN (hypertension), benign Hypertension Migraine Neuropathy Tobacco abuse <NUHA Hudson Last Filed: 11/29/23 02:57> Surgical History Surgical History: Surgical History H/O: hysterectomy History of appendectomy History of cerebral aneurysm repair History of surgery on lower extremity Hx of cholecystectomy S/P tonsillectomy and adenoidectomy <NUHA Hudson Last Filed: 11/29/23 02:57> Family History Family History: Family History Mother Cancer Father Emphysema lung <NUHA Hudson Last Filed: 11/29/23 02:57> Social History Social History: Social History (Updated 08/20/23 @ 14:08 by ALHAJI House) Social History: The patient comes from [facility]. She has 2 children. She smokes a pack a cigarettes a day. She is retired. 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
[2023-11-29 02:02] LABS: Add Urine Microscopic? NO; Appearance Urine Clear (Clear); Bilirubin Urine Negative (Negative); Blood Urine Negative (Negative); Color Urine Yellow (Yellow); Glucose Urine UA Negative (Negative); Ketones Urine Negative (Negative); Leukocyte Esterase Ur Negative LEU/UL (Negative); Nitrate Urine Negative (Negative); Protein Urine Negative (Negative); Specific Grav Ur 1.029 (1.001-1.035); pH Urine 5.5 (5.0-9.0)
[2023-11-29] MEDS: ONDANSETRON INJ 4 MG/2 ML VIAL IV PUSH (02:30)
[2023-11-29] MEDS: MORPHINE SULFATE (*CRX) 4 MG/ML INJ IV PUSH (02:30)
[2023-11-29 02:36] LABS: Basophils Percent Auto 0.7 % (0.2-1.2); Eosinophils Absolute Auto 0.1 K/mm3 (0-0.3); Eosinophils Percent Auto 2.3 % (0-4.4); Hematocrit 40.1 % (37.0-47.0); Immature Granulocyte Absolute 0.03 K/mm3 (0.00-0.031); Immature Granulocyte Percent A 0.5 % (0-0.5); Lymphocytes Absolute Auto 2.23 K/mm3 (0.9-3.2); Lymphocytes Percent Auto 36.3 % (18.3-44.2); Mean Corpuscular HGB Conc 32.4 g/dl (32-36); Mean Corpuscular Hemoglobin 29.4 pg (26-34); Mean Corpuscular Volume 90.7 fl (80-100); Mean Platelet Volume 9.7 fl (7.4-10.4); Monocytes Absolute Auto 0.7 K/mm3 (0.1-0.6); Monocytes Percent Auto 11.2 % (2.6-8.5); Platelet Count Result 308 k/mm3 (150-375); Red Blood Count 4.42 M/mm3 (4.2-5.4); Red Cell Distribution Width 12.8 % (11.5-14.5); White Blood Count 6.1 K/mm3 (4.5-10.0)
[2023-11-29] MEDS: ACETAMINOPHEN 325 MG TABLET 650 MG PO (03:09)
[2023-11-29] MEDS: ORPHENADRINE CITRATE 100 MG TABLET.ER PO (03:09)
[2023-11-29] MEDS: LIDOCAINE 5% PATCH 1 PATCH TRANSDERM (03:09)
[2023-11-29 03:56] LABS: Alanine Aminotransferase 12 U/L (6-35); Alkaline Phosphatase 113 U/L (38-126); Anion Gap 12 mmol/L (4-12); Aspartate Amino Transferase 22 U/L (14-36); Bilirubin,Total 0.7 mg/dL (0.2-1.3); Blood Urea Nitrogen 24 mg/dL (7-17); Calcium 9.2 mg/dL (8.4-10.2); Carbon Dioxide 20 mmol/L (22-30); Chloride 103 mmol/L (98-107); Estimated CRCL calculation 58 ml/min; Estimated Glomerular Filt Rate > 60; Glucose 89 mg/dL (65-110); Lipase 160 U/L (23-300); Potassium 3.7 mmol/L (3.4-5.0); Sodium 135 mmol/L (137-145)
[2023-11-29] MEDS: MAGNESIUM CITRATE 300 ML BTL 150 ML PO (06:38)
[2023-11-29] MEDS: PSYLLIUM POWDER PACKET 1 PACKET PO (06:38)
== END 2023-11-29 09:32 ==
PROVIDERS: Physician Assistant; Emergency Provider Student in an Organized Health Care Education/Training Program
DX: K59.00 Constipation, unspecified (principal); R33.9 Retention of urine, unspecified; M54.50 Low back pain, unspecified; I10 Essential (primary) hypertension; G20.A1 Parkinson's disease without dyskinesia, without mention of fluctuations; G62.9 Polyneuropathy, unspecified; F41.8 Other specified anxiety disorders; F17.210 Nicotine dependence, cigarettes, uncomplicated; Z90.710 Acquired absence of both cervix and uterus; Z79.899 Other long term (current) drug therapy; Z90.49 Acquired absence of other specified parts of digestive tract
CPT/HCPCS: 36415; 51702; 74177; 80053; 81003; 83690; 85025; 96374; 96375; 99284; A9270; J2270; J2405; Q9967

== ENCOUNTER 2023-12-06 22:22 | Emergency (ER) | payer MEDICARE, MEDICAID, SELFPAY ==
[2023-12-06 22:30] VITALS: BP 120/67; PULSE 67; RESP 17; TEMP 36.4; O2SAT 99
[2023-12-07 06:02] VITALS: BP 135/73; PULSE 55; RESP 14; O2SAT 97
[2023-12-07 06:32] VITALS: BP 124/79; PULSE 62; RESP 17; O2SAT 96
--- NOTE | 2023-12-07 06:32 | ED.FEMALEGU ---
HPI - Female Genitourinary General Chief complaint: Urogenital-Female Stated complaint: back pain/ urinary retention Time Seen by Provider: 12/07/23 06:28 Source: patient and RN notes reviewed Mode of arrival: EMS Limitations: dementia History of Present Illness HPI Narrative: Patient presents with complaint of back pain and urinary retention. Been complaining 10/10 back pain x1 week. She was seen earlier for this which time a Holden had been placed and she was discharged with the Holden but she pulled it out. No reported fevers and she denies any. Related Data Home Medications Medication Instructions Recorded Confirmed gabapentin 300 mg capsule 300 mg PO TID 01/17/22 08/20/23 quetiapine 25 mg tablet 12.5 mg PO DAILY 01/17/22 08/20/23 lgnzzditje-mzmoxhklpbvoy-dupcfeae 1 tablet PO Q4H PRN Headache 10/06/22 08/20/23 50 mg-325 mg-40 mg tablet fluoxetine 40 mg capsule 40 mg PO DAILY 10/06/22 08/20/23 acetaminophen 325 mg capsule 325 mg PO Q6H PRN 12/19/22 08/20/23 cholecalciferol (vitamin D3) 125 125 mcg PO DAILY 12/19/22 08/20/23 mcg (5,000 unit) capsule midodrine 2.5 mg tablet 2.5 mg PO BID 12/19/22 08/20/23 cetirizine 10 mg tablet 10 mg PO DAILY PRN 04/23/23 08/20/23 ondansetron 4 mg disintegrating 4 mg PO Q8H 04/23/23 08/20/23 tablet Allergies Allergy/AdvReac Type Severity Reaction Status Date / Time prochlorperazine Allergy Unknown Verified 12/06/23 22:39 [From Compazine] codeine AdvReac Confusion Verified 12/06/23 22:39 PENDING SALE TO [facility] Past Medical History Medical History Chronic kidney disease, stage 3a Depression with anxiety History of cerebral aneurysm HTN (hypertension), benign Hypertension Hypertensive chronic kidney disease with stage 1 through stage 4 chronic kidney disease, or unspecified chronic kidney disease Migraine Neuropathy Other chronic allergic conjunctivitis Parkinsonism Polyneuropathy, unspecified Tobacco abuse Unspecified dementia, unspecified severity, without behavioral disturbance, psychotic disturbance, mood disturbance, and anxiety Surgical History Surgical History H/O: hysterectomy History of appendectomy History of cerebral aneurysm repair History of surgery on lower extremity Hx of cholecystectomy S/P tonsillectomy and adenoidectomy Family History Family History Mother Cancer Father Emphysema lung Social History Social History Social History: She has 2 children. She smokes a pack a cigarettes a day. She is retired. She is Code status full code Smoking status: Current every day smoker Tobacco type: cigarettes Additional smoking assessment comments: REQUEST NICOTINE PATCH Alcohol intake: never Substance use: never Substance use type: does not use Do You Feel Safe in your Home?: Yes Lack of Transportation: No Lack of Food: Never True Current Housing: I Have Housing Concerned About Future Housing: No Difficulty Paying Gas/Electric Bills: No Difficulty Paying for Meds: No Currently Unemployed: No Education: High School Diploma/GED Difficulty w/ Childcare or Family Care: No Living arrangements: assisted Additional living arrangements comments: [facility] ([facility]) Spiritual care concerns: No Exam Narrative: GENERAL: Well-appearing, well-nourished, and in no acute distress. Does not appear to be in pain; no grimacing or furrowed brow HEAD: Normocephalic, atraumatic. EYES: Non injected, non icteric ENT: Nares clear, no rhinorrhea or epistaxis. NECK: Supple. CHEST: Speaking in full sentences. No respiratory distress. HEART: Regular rate and rhythm. . ABDOMEN: Soft, nondistended. EXTREMITIES: Normal range of motion. No lower extremity edema. Back: Bi
[2023-12-07 07:05] LABS: Add Urine Microscopic? NO; Appearance Urine Clear (Clear); Bilirubin Urine Negative (Negative); Blood Urine Negative (Negative); Color Urine Yellow (Yellow); Glucose Urine UA Negative (Negative); Ketones Urine Negative (Negative); Leukocyte Esterase Ur Negative LEU/UL (Negative); Nitrate Urine Negative (Negative); Protein Urine Negative (Negative); Specific Grav Ur 1.028 (1.001-1.035)
[2023-12-07 08:10] VITALS: BP 137/84; PULSE 57; RESP 16; TEMP 36.6; O2SAT 100
--- NOTE | 2023-12-07 08:14 | PC.NURSE ---
Leg bag sent back to [place] with patient.
--- NOTE | 2023-12-07 09:13 | PC.NURSE ---
Jalyn at [facility]& notified that patient is en route back.
== END 2023-12-07 09:13 ==
PROVIDERS: Emergency Provider Student in an Organized Health Care Education/Training Program
DX: R33.9 Retention of urine, unspecified (principal); F03.90 Unspecified dementia, unspecified severity, without behavioral disturbance, psychotic disturbance, mood disturbance, and anxiety; I12.9 Hypertensive chronic kidney disease with stage 1 through stage 4 chronic kidney disease, or unspecified chronic kidney disease; N18.31 Chronic kidney disease, stage 3a; G62.9 Polyneuropathy, unspecified; G20.C Parkinsonism, unspecified; F41.8 Other specified anxiety disorders; F17.210 Nicotine dependence, cigarettes, uncomplicated; Z90.710 Acquired absence of both cervix and uterus; Z90.49 Acquired absence of other specified parts of digestive tract; Z79.899 Other long term (current) drug therapy
CPT/HCPCS: 51702; 81003; 99283

== ENCOUNTER 2023-12-23 16:40 | Outpatient (CLI) | payer MEDICARE, MEDICAID, SELFPAY ==
[2023-12-25 18:48] LABS: Red Blood Cell Folate 501 ng/mL RBC (>280)
[2023-12-28 02:13] LABS: Methylmalonic Acid 141 nmol/L (69-390)
[2023-12-28 12:58] LABS: Vitamin D 1,25 (OH)2 Total 42 pg/mL (18-72); Vitamin D2 1,25 (OH)2 <8 pg/mL; Vitamin D3 1,25 (OH)2 42 pg/mL
[2023-12-28 18:28] LABS: Immunofixation, Serum Normal pattern.
[2023-12-29 07:22] LABS: Reference Lab Test Name Acetyl Rec Bind Ab; Reference Lab Test Result <0.30
[2023-12-29 07:23] LABS: Reference Lab Test Name Acetyl Rec Block Ab
[2023-12-29 07:24] LABS: Reference Lab Test Result <15%
[2024-01-30 11:36] LABS: Reference Lab Test Result <1% Inhibition
== END 2023-12-23 16:41 | disposition home or self-care (01) ==
LOC: ANHLAB 16:49
PROVIDERS: Visit Provider Psychiatry & Neurology Neurology
DX: F03.90 Unspecified dementia, unspecified severity, without behavioral disturbance, psychotic disturbance, mood disturbance, and anxiety (principal); R13.10 Dysphagia, unspecified; R47.1 Dysarthria and anarthria; E55.9 Vitamin D deficiency, unspecified
CPT/HCPCS: 36415; 82607; 82652; 82747; 83519; 83921; 84425; 86038; 86039; 86334

== ENCOUNTER 2023-12-28 07:55 | Inpatient (IN) | payer MEDICARE, MEDICAID, SELFPAY ==
--- NOTE | ~2023-12-28 | CT_ITS ---
EXAMINATION: CT lumbar spine wo con DATE: 12/29/2023 14:12 INDICATION: Lumbar compression fractures. TECHNIQUE: Computed tomography (CT) of the lumbar spine was performed without intravenous contrast. A utomated exposure control and iterative reconstruction technique were employed. The dose-length produ ct was 331.79 mGy-cm. COMPARISON: CT abdomen and pelvis 11/29/2023 FINDINGS: There is a 9 mm cyst in right kidney. There is 16 degrees levoscoliosis of lumbar spine. Th ere is a burst fracture of inferior plate of T12 with 1/5 loss of height. There is a burst fracture o f superior endplate of L2 with 1/5 loss of height and retropulsion of bone 3 mm into central spinal c anal. There is a chronic compression fracture of L3 with 1/5 loss of height. There is a burst fractur e of inferior plate of L4 with 1/5 loss of height and retropulsion of bone 3 mm into central spinal c anal. There is mildly decreased disc height at L3-L4 and L5-S1. The following disc levels are specifi omero discussed: T12-L1: There is a central protrusion. There is mild bilateral facet joint osteoarthritis. There is n o neural foraminal stenosis. There is mild central canal stenosis. L1-L2: The disc is bulging. There is moderate bilateral facet joint osteoarthritis. There is mild natalie ateral neural foraminal stenosis. There is mild central canal stenosis. L2-L3: The disc is bulging. There is mild bilateral facet joint osteoarthritis. There is mild bilater al neural foraminal stenosis. There is mild central canal stenosis. L3-L4: The disc is bulging. There is mild bilateral facet joint osteoarthritis. There is mild bilater al neural foraminal stenosis. There is mild central canal stenosis. L4-L5: The disc is bulging. There is mild bilateral facet joint osteoarthritis. There is mild bilater al neural foraminal stenosis. There is mild central canal stenosis. L5-S1: The disc is bulging. There is moderate bilateral facet joint osteoarthritis. There is mild natalie ateral neural foraminal stenosis. There is mild central canal stenosis. IMPRESSION: 1. Acute/subacute burst fractures of T12 and L4, new from 11/29/2023. 2. Subacute L2 burst fracture, worsened from 11/29/2023. 3. Mild lumbar spondylosis. 4. Lumbar levoscoliosis. Reviewed, dictated and finalized at location A.
--- NOTE | ~2023-12-28 | CT_ITS ---
EXAMINATION: CT abdomen pelvis wo con DATE: 12/28/2023 10:51 INDICATION: Left flank pain TECHNIQUE: Computed tomography (CT) of the abdomen and pelvis was performed without intravenous contr ast. Automated exposure control and iterative reconstruction technique were employed. The dose-length product was 331.79 mGy-cm. COMPARISON: 11/29/23 FINDINGS: Mild dependent atelectasis in the right lower lobe. Heart size is normal. No pericardial or pleural e ffusion. Atherosclerotic coronary artery calcifications. No pericardial or pleural effusion. Liver, g allbladder, spleen, pancreas, bilateral adrenal glands and kidneys are normal. No urolithiasis or hyd ronephrosis. There is a Holden catheter in the decompressed bladder. There is stranding to the surroun ding fat suggestive of cystitis. No bowel obstruction. No free intraperitoneal gas or fluid. No patho logically enlarged abdominal or pelvic lymphadenopathy. Inferior endplate compression fractures with 20% central vertebral body height loss at T12 and L4 which are new since the prior study and interval progression of now 40% right anterior to central vertebral body height loss at L2. Unchanged mild ch ronic superior endplate compression fracture at L3. IMPRESSION: 1. Holden catheter within the bladder with surrounding inflammatory stranding suggestive of cystitis. Correlate with urinalysis. 2. Acute to subacute compression fractures at T12, L2 and L4 which are either new or have progressed since the study from one month prior. Reviewed, dictated and finalized at location A. IMPRESSION: 1. Holden catheter within the bladder with surrounding inflammatory stranding ventura ggestive of cystitis. Correlate with urinalysis. 2. Acute to subacute compression fractures at T12, L2 and L4 which are either n ew or have progressed since the study from one month prior.
[2023-12-28 08:04] VITALS: BP 119/74; PULSE 66; RESP 16; TEMP 36.5; O2SAT 99
[2023-12-28 08:36] LABS: Basophils Percent Auto 0.6 % (0.2-1.2); Eosinophils Absolute Auto 0.2 K/mm3 (0-0.3); Eosinophils Percent Auto 3.4 % (0-4.4); Hematocrit 34.9 % (37.0-47.0); Hemoglobin 11.5 g/dL (12.0-15.0); Immature Granulocyte Absolute 0.04 K/mm3 (0.00-0.031); Immature Granulocyte Percent A 0.8 % (0-0.5); Lymphocytes Absolute Auto 1.49 K/mm3 (0.9-3.2); Mean Corpuscular Hemoglobin 28.8 pg (26-34); Mean Corpuscular Volume 87.3 fl (80-100); Mean Platelet Volume 9.4 fl (7.4-10.4); Monocytes Absolute Auto 0.5 K/mm3 (0.1-0.6); Monocytes Percent Auto 9.2 % (2.6-8.5); Neutrophils Absolute Auto 3.1 K/mm3 (1.3-6.7); Platelet Count Result 347 k/mm3 (150-375); Red Cell Distribution Width 12.8 % (11.5-14.5); White Blood Count 5.3 K/mm3 (4.5-10.0)
[2023-12-28] MEDS: SODIUM CHLORIDE 0.9% IV 1,000 ML 999 ML IV CONT (08:42)
[2023-12-28 08:46] LABS: Alanine Aminotransferase 11 U/L (6-35); Albumin Level 3.9 g/dL (3.5-5.1); Alkaline Phosphatase 122 U/L (38-126); Anion Gap 11 mmol/L (4-12); Aspartate Amino Transferase 21 U/L (14-36); Bilirubin,Total 0.3 mg/dL (0.2-1.3); Blood Urea Nitrogen 22 mg/dL (7-17); Calcium 9.1 mg/dL (8.4-10.2); Carbon Dioxide 24 mmol/L (22-30); Chloride 101 mmol/L (98-107); Estimated CRCL calculation 44 ml/min; Estimated Glomerular Filt Rate > 60; Glucose 90 mg/dL (65-110); Lipase 63 U/L (23-300); Potassium 3.5 mmol/L (3.4-5.0); Sodium 136 mmol/L (137-145)
[2023-12-28 09:47] LABS: Bacteria Urine 1+ /hpf; Need Manual Microscopic Reviewed; Non Pathogenic Casts 0-2; RBC Urine >100 /hpf (0-2); Squamous Epithelial Cell Urine None Seen /hpf (Few); WBC Urine >100 /hpf (0-3)
[2023-12-28 09:51] LABS: Add Urine Microscopic? YES; Appearance Urine Turbid (Clear); Bilirubin Urine 1+ (Negative); Blood Urine 3+ (Negative); Glucose Urine UA Negative (Negative); Ketones Urine Trace mg/dL (Negative); Leukocyte Esterase Ur 2+ LEU/UL (Negative); Nitrate Urine Negative (Negative); Protein Urine 3+ mg/dL (Negative); Specific Grav Ur 1.026 (1.001-1.035); Urobilinogen Urine 0.2 mg/dL (<2.0)
[2023-12-28 09:53] LABS: Color Urine Red (Yellow)
[2023-12-28 10:12] VITALS: BP 139/86; PULSE 77; RESP 20; O2SAT 100
--- NOTE | 2023-12-28 10:13 | PC.NURSE ---
Holedn cath changed per verbal order by EDP.
[2023-12-28 11:16] VITALS: BP 132/83; PULSE 68; RESP 22; O2SAT 100
--- NOTE | 2023-12-28 12:14 | ED.BACK ---
HPI - Back Pain/Injury General Chief Complaint: Back Pain/Injury Stated Complaint: back pain x 2 weeks, decreased I&O Time Seen by Provider: 12/28/23 07:56 History of Present Illness HPI Narrative: Patient is a 68-year-old female who presents ER with back pain. Located mainly on left sign. Worsening over last 2 weeks. Worse with any physical movement. Patient lives at [facility]. She has a Holden catheter that is not draining over last couple days. Patient has mild suprapubic discomfort. Denies fevers or chills. Patient walks with a cane. She has Parkinson's and some dementia. Related Data Home Medications Medication Instructions Recorded Confirmed cqqmztefss-vlqwoooynlpcj-ubkfhklh 1 tablet PO Q4H PRN Headache 10/06/22 12/28/23 50 mg-325 mg-40 mg tablet acetaminophen 325 mg capsule 650 mg PO Q6H PRN Pain 12/19/22 12/28/23 midodrine 2.5 mg tablet 2.5 mg PO Q8H PRN orthostatic 12/19/22 12/28/23 hypotension ondansetron 4 mg disintegrating 4 mg PO Q6H PRN Nausea And Vomiting 04/23/23 12/28/23 tablet amlodipine 5 mg tablet 5 mg PO DAILY 12/28/23 12/28/23 bisacodyl 10 mg rectal suppository 10 mg RECTAL DAILY PRN Pain 12/28/23 12/28/23 (Dulcolax (bisacodyl)) bisacodyl 5 mg tablet 10 mg PO DAILY 12/28/23 12/28/23 carboxymethylcellulose sodium 1 % 1 drp EACH EYE BID 12/28/23 12/28/23 eye drops (Artificial Tears (carboxymethylcellulose)) cromolyn 4 % eye drops 2 drp EACH EYE QID 12/28/23 12/28/23 cyanocobalamin (vitamin B-12) 500 500 mcg PO DAILY 12/28/23 12/28/23 mcg tablet duloxetine 20 mg capsule,delayed 20 mg PO DAILY 12/28/23 12/28/23 release lisinopril 10 mg tablet 10 mg PO DAILY 12/28/23 12/28/23 magnesium hydroxide 400 mg/5 mL 30 ml PO DAILY PRN Constipation 09/15/24 09/15/24 oral suspension (Milk of Magnesia) Allergies Allergy/AdvReac Type Severity Reaction Status Date / Time prochlorperazine Allergy Unknown Verified 12/28/23 17:59 [From Compazine] codeine AdvReac Confusion Verified 12/28/23 17:59 Review of Systems Review of Systems: All systems reviewed & are unremarkable except as noted in HPI and below Constitutional: Constitutional: Reports no additional constitutional complaints ENT: Reports system reviewed and no additional complaints, except as documented Cardiovascular: Cardiovascular: Reports no additional cardiovascular complaints Respiratory: Respiratory: Reports no additional respiratory complaints Gastrointestinal: Gastrointestinal: Reports abdominal pain, Denies constipation, Denies nausea and Denies vomiting Genitourinary: Comments: Decreased drainage from Holden Musculoskeletal: Musculoskeletal: Reports back pain, Denies arthralgias, Denies joint swelling and Denies muscle cramps PMFSH Past Medical History Medical History Chronic kidney disease, stage 3a Depression with anxiety Dysarthria History of cerebral aneurysm HTN (hypertension), benign Hypertension Hypertensive chronic kidney disease with stage 1 through stage 4 chronic kidney disease, or unspecified chronic kidney disease Migraine Neuropathy Other chronic allergic conjunctivitis Parkinsonism Polyneuropathy, unspecified Tobacco abuse Unspecified dementia, unspecified severity, without behavioral disturbance, psychotic disturbance, mood disturbance, and anxiety Surgical History Surgical History H/O: hysterectomy History of appendectomy History of cerebral aneurysm repair History of surgery on lower extremity Hx of cholecystectomy S/P tonsillectomy and adenoidectomy Family History Family History Mother Cancer Father Emphysema lung Social History Social History Social History: She has 2 children. She smokes a pack a cigarettes a day. She is retir
--- NOTE | 2023-12-28 13:56 | PM.IMHP ---
H&P: HPI History of Present Illness Date/Time: 12/28/23 13:56 Chief Complaint: Back Pain Narrative: 68 y/o F presents here with chronic lower back pain with PMH of Parkinson's, dementia, CKD, depression/anxiety, cerebral aneurysm, HTN, migraines, polyneuropathy. The patient presents here from [facility] for further evaluation of low back pain. The patient reports she has been experiencing chronic lower back pain for the past 2 weeks and decreased urinary output. She describes the pain as sharp, bilateral, nonradiating, constant, aggravated by movement, and alleviated by rest/minimal movement. She reports she had a urinary catheter placed approximately 2 weeks ago due to urinary retention and has not been draining for the past X4-5 days. Decreased urinary output is accompanied by suprapubic pressure/discomfort. Endorsing body aches. Denies hematuria, fever, chills. Denies focal numbness or weakness in the LEs. Initial VS at presentation: 97.7? F, HR 66, RR 16, 119/74, and 99% on RA. ED workup showed: No leukocytosis, hemoglobin 11.5 (previously 13.0 on 11/29/2023, however baseline appears to be 10.4-11.4), no significant electrolyte derangements, creatinine 0.9 and GFR >60. UA consistent with UTI. CT of the abdomen/pelvis showed a Holden catheter within the bladder with surrounding inflammatory stranding suggestive of cystitis, and acute to subacute compression fractures of T12, L2, and L4 which are either new or progressed since the study from 1 month prior. Review of Systems Review of Systems: All systems reviewed & are unremarkable except as noted in HPI and below PMFSH Past Medical History Medical History Chronic kidney disease, stage 3a Depression with anxiety Dysarthria History of cerebral aneurysm HTN (hypertension), benign Hypertension Hypertensive chronic kidney disease with stage 1 through stage 4 chronic kidney disease, or unspecified chronic kidney disease Migraine Neuropathy Other chronic allergic conjunctivitis Parkinsonism Polyneuropathy, unspecified Tobacco abuse Unspecified dementia, unspecified severity, without behavioral disturbance, psychotic disturbance, mood disturbance, and anxiety Surgical History Surgical History H/O: hysterectomy History of appendectomy History of cerebral aneurysm repair History of surgery on lower extremity Hx of cholecystectomy S/P tonsillectomy and adenoidectomy Family History Family History Mother Cancer Father Emphysema lung Social History Social History Social History: She has 2 children. She smokes a pack a cigarettes a day. She is retired. She is Code status full code Years smoked: 40 Smoking status: Light tobacco smoker Tobacco type: cigarettes Second hand tobacco smoke exposure: Yes Additional smoking assessment comments: REQUEST NICOTINE PATCH Alcohol intake: former Substance use: former Substance use type: does not use Do You Feel Safe in your Home?: Yes Lack of Transportation: No Lack of Food: Never True Current Housing: I Have Housing Concerned About Future Housing: No Difficulty Paying Gas/Electric Bills: No Difficulty Paying for Meds: No Currently Unemployed: No Education: High School Diploma/GED Difficulty w/ Childcare or Family Care: No Living arrangements: [facility] Additional living arrangements comments: [facility] ([facility]) Spiritual care concerns: No Meds Home Medications and Allergies Home Medications Medication Instructions Recorded Confirmed Type vmxzkczmdv-vpzqozzaprwnw-hwvibbvt 1 tablet PO Q4H PRN Headache 10/06/22 12/28/23 History 50 mg-325 mg-40 mg tablet acetaminophen 325 mg capsule 650 mg PO Q6H CA
--- NOTE | 2023-12-28 14:35 | ADMGEN ---
This patient, Ruchi Vicente, was admitted to [facility] Surg Room 315-02. Patient/family oriented to hospital policies and general routines including ID bracelet, bed and alarms, visiting hours, pain management, procedures, bathroom and other care routines, personal items, smoking policy, room service/diet, and visiting hours. Information on how to activate the Rapid Response Team has been discussed. Patient/Family are encouraged to report perceived risks to care and to ask questions if they do not understand what they are told or what they should do.
[2023-12-28 14:36] VITALS: BP 135/76; PULSE 80; RESP 21; TEMP 36.8; O2SAT 99
[2023-12-28] MEDS: HYDROcodone/acetaminophen (*CRX) 5-325 MG TABLET 1 TAB PO ×2 (14:41→20:12)
[2023-12-28 15:50] VITALS: BMI 19.5
--- NOTE | 2023-12-28 18:21 | PC.NURSE ---
TLSO brace not available until tomorrow (mon 12/29/23); pt must have brace on at all times once available; until brace available, bedrest w/ bsc privileges are ordered for activity.
[2023-12-28 21:46] VITALS: BP 129/70; PULSE 97; RESP 12; TEMP 36.5; O2SAT 96
[2023-12-29] MEDS: HYDROcodone/acetaminophen (*CRX) 5-325 MG TABLET 1 TAB PO ×4 (04:29→23:29)
[2023-12-29 06:00] VITALS: BP 112/56; PULSE 77; RESP 12; TEMP 36.6; O2SAT 97
[2023-12-29 06:57] LABS: Basophils Percent Auto 0.7 % (0.2-1.2); Eosinophils Absolute Auto 0.2 K/mm3 (0-0.3); Eosinophils Percent Auto 3.9 % (0-4.4); Hematocrit 34.5 % (37.0-47.0); Hemoglobin 11.1 g/dL (12.0-15.0); Immature Granulocyte Absolute 0.02 K/mm3 (0.00-0.031); Immature Granulocyte Percent A 0.5 % (0-0.5); Lymphocytes Absolute Auto 1.66 K/mm3 (0.9-3.2); Lymphocytes Percent Auto 40.5 % (18.3-44.2); Mean Corpuscular HGB Conc 32.2 g/dl (32-36); Mean Corpuscular Hemoglobin 28.2 pg (26-34); Mean Corpuscular Volume 87.6 fl (80-100); Mean Platelet Volume 9.1 fl (7.4-10.4); Monocytes Absolute Auto 0.5 K/mm3 (0.1-0.6); Neutrophils Absolute Auto 1.8 K/mm3 (1.3-6.7); Neutrophils Percent Auto 43.4 % (45.5-73.1); Platelet Count Result 317 k/mm3 (150-375); Red Blood Count 3.94 M/mm3 (4.2-5.4); Red Cell Distribution Width 12.8 % (11.5-14.5); White Blood Count 4.1 K/mm3 (4.5-10.0)
[2023-12-29 07:11] LABS: Anion Gap 8 mmol/L (4-12); Blood Urea Nitrogen 18 mg/dL (7-17); Calcium 9.1 mg/dL (8.4-10.2); Carbon Dioxide 23 mmol/L (22-30); Chloride 107 mmol/L (98-107); Estimated CRCL calculation 49 ml/min; Estimated Glomerular Filt Rate > 60; Glucose 90 mg/dL (65-110); Potassium 3.5 mmol/L (3.4-5.0); Sodium 138 mmol/L (137-145)
[2023-12-29] MEDS: CYANOCOBALAMIN 500 MCG TABLET PO (08:56)
[2023-12-29] MEDS: amLODIPine BESYLATE 5 MG TABLET PO (08:56)
[2023-12-29] MEDS: DULoxetine HCL 20 MG CAPSULE.DR PO (08:56)
[2023-12-29] MEDS: lisinopriL 10 MG TABLET PO (08:56)
[2023-12-29] MEDS: prednisoLONE ACETATE 1% OPHTH 5 ML 1 DROP EACH EYE ×4 (08:57→21:28)
[2023-12-29] MEDS: ARTIFICIAL TEARS OPHTH SOLN 15 ML BOTTLE 1 DROP EACH EYE ×2 (09:01→17:16)
[2023-12-29] MEDS: ONDANSETRON HCL ODT 4 MG TABLET PO (10:16)
[2023-12-29 11:33] VITALS: BMI 19.5
[2023-12-29 14:00] VITALS: BP 114/54; PULSE 72; RESP 18; TEMP 36.3; O2SAT 95
--- NOTE | 2023-12-29 14:11 | PCPTNOTE ---
Spoke with current hospitalist, Rica Zhang APRN, about removing bedrest orders. Hospitalist OK with pt coming off of bedrest and participating with therapy with TLSO when Out of bed. RN aware.
--- NOTE | 2023-12-29 14:31 | PC.NURSE ---
All pt documentation on todays date from 0700 to persent completed by Tony DONALDSON.
--- NOTE | 2023-12-29 15:25 | PM.IMPN ---
Progress Note: A&P Assessment and Plan (1) Acute UTI: Code(s): N39.0 - Urinary tract infection, site not specified Status: Acute Assessment and Plan: - did not meet SIRS criteria - UA: Red, turbid, 3+ protein, trace ketones, 3+ blood, 1+ bilirubin, 2+ leuks, greater than 100 RBC and WBC, no epithelial cells, 1+ bacteria - UC pending - previous micro reviewed, one UC on file which showed no growth - started on Ceftriaxone on 12/27 - CT abdomen/pelvis: Holden catheter within the bladder with surrounding inflammatory stranding suggestive of cystitis. Correlate with urinalysis. - Monitor labs. (2) Spinal compression fracture: Qualifiers: Encounter type: subsequent encounter Code(s): M48.50XA - Collapsed vertebra, not elsewhere classified, site unspecified, initial encounter for fracture Status: Acute Assessment and Plan: - CT abdomen/pelvis: acute to subacute compression fractures at T12, L2 and L4 which are either new or have progressed since the study from one month prior. - ED spoke with on-call neuro surgical team, suggested TLSO brace with no acute interventions indicated at this time. TLSO received today. - analgesics p.r.n. - TLSO brace placed, PT post-brace placement (3) HTN (hypertension), benign: Code(s): I10 - Essential (primary) hypertension Status: Chronic Assessment and Plan: - chronic, currently 114/54 - continue home medications: Amlodipine, lisinopril - monitor Plan Diet: Heart healthy GI Prophylaxis: Not currently indicated DVT Prophylaxis: SCDs Lines: Peripheral Code Status: Full code Subjective Date/time seen: 12/29/23 15:25 Interval history: 68 y/o F presents here with chronic lower back pain with PMH of Parkinson's, dementia, CKD, depression/anxiety, cerebral aneurysm, HTN, migraines, polyneuropathy. The patient presents here from [facility] for further evaluation of low back pain. The patient reports she has been experiencing chronic lower back pain for the past 2 weeks and decreased urinary output. She describes the pain as sharp, bilateral, nonradiating, constant, aggravated by movement, and alleviated by rest/minimal movement. She reports she had a urinary catheter placed approximately 2 weeks ago due to urinary retention and has not been draining for the past X4-5 days. Decreased urinary output is accompanied by suprapubic pressure/discomfort. Endorsing body aches. Denies hematuria, fever, chills. Denies focal numbness or weakness in the LEs. ED workup showed: No leukocytosis, hemoglobin 11.5 (previously 13.0 on 11/29/2023, however baseline appears to be 10.4-11.4), no significant electrolyte derangements, creatinine 0.9 and GFR >60. UA consistent with UTI. CT of the abdomen/pelvis showed a Holden catheter within the bladder with surrounding inflammatory stranding suggestive of cystitis, and acute to subacute compression fractures of T12, L2, and L4 which are either new or progressed since the study from 1 month prior. Patient reports that back pain is a 6 , constant, and aching. Patient to receive a TLSO brace today and can afterwards begin physical therapy. WBC 4.1, H&H 11.1/34.5, BUN 18, Creatinine 0.80, GFR >60. Urine culture is pending. Review of Systems Review of Systems: All systems reviewed & are unremarkable except as noted in HPI and below Exam Narrative: benign Const: General: comfortable and no acute distress HENMT: Face/Nose/Sinus: Normal nares present Mouth: Yes moist mucous membranes Eyes: General: appearance normal, both eyes and all related structures Sclera: sclerae normal Pupils: Equal, round and reactive pupils present EOM: EOMs intact bilaterally Resp: Effort & Inspection: normal respiratory effort Auscultation: clear to auscultation bilaterally Cardio: Rate: regular rate Rhythm: regular rhythm Other: S1-S2 present without murmur, rub, ectopy GI: Othe
[2023-12-29 21:24] VITALS: BP 114/70; PULSE 68; RESP 13; TEMP 37.1; O2SAT 96
[2023-12-30] MEDS: HYDROcodone/acetaminophen (*CRX) 5-325 MG TABLET 1 TAB PO ×3 (04:30→20:29)
[2023-12-30 05:42] VITALS: BP 118/70; PULSE 64; RESP 14; TEMP 36.5; O2SAT 96
[2023-12-30 06:24] LABS: Basophils Absolute Auto 0.1 K/mm3 (0.0-0.1); Basophils Percent Auto 0.9 % (0.2-1.2); Eosinophils Absolute Auto 0.2 K/mm3 (0-0.3); Eosinophils Percent Auto 3.4 % (0-4.4); Hematocrit 33.9 % (37.0-47.0); Hemoglobin 10.8 g/dL (12.0-15.0); Immature Granulocyte Absolute 0.02 K/mm3 (0.00-0.031); Immature Granulocyte Percent A 0.4 % (0-0.5); Lymphocytes Absolute Auto 1.62 K/mm3 (0.9-3.2); Lymphocytes Percent Auto 29.2 % (18.3-44.2); Mean Corpuscular HGB Conc 31.9 g/dl (32-36); Mean Corpuscular Hemoglobin 28.3 pg (26-34); Mean Corpuscular Volume 88.7 fl (80-100); Mean Platelet Volume 9.1 fl (7.4-10.4); Monocytes Absolute Auto 0.6 K/mm3 (0.1-0.6); Monocytes Percent Auto 10.5 % (2.6-8.5); Neutrophils Absolute Auto 3.1 K/mm3 (1.3-6.7); Neutrophils Percent Auto 55.6 % (45.5-73.1); Platelet Count Result 317 k/mm3 (150-375); Red Blood Count 3.82 M/mm3 (4.2-5.4); Red Cell Distribution Width 12.9 % (11.5-14.5); White Blood Count 5.6 K/mm3 (4.5-10.0)
[2023-12-30 06:41] LABS: Alanine Aminotransferase 10 U/L (6-35); Albumin Level 3.5 g/dL (3.5-5.1); Alkaline Phosphatase 114 U/L (38-126); Anion Gap 9 mmol/L (4-12); Aspartate Amino Transferase 16 U/L (14-36); Bilirubin,Total 0.2 mg/dL (0.2-1.3); Blood Urea Nitrogen 20 mg/dL (7-17); Calcium 8.7 mg/dL (8.4-10.2); Carbon Dioxide 25 mmol/L (22-30); Chloride 104 mmol/L (98-107); Estimated CRCL calculation 55 ml/min; Estimated Glomerular Filt Rate > 60; Glucose 89 mg/dL (65-110); Potassium 3.5 mmol/L (3.4-5.0); Sodium 138 mmol/L (137-145)
[2023-12-30] MEDS: BISACODYL 5 MG TABLET EC 10 MG PO (09:06)
[2023-12-30] MEDS: lisinopriL 10 MG TABLET PO (09:07)
[2023-12-30] MEDS: amLODIPine BESYLATE 5 MG TABLET PO (09:07)
[2023-12-30] MEDS: CYANOCOBALAMIN 500 MCG TABLET PO (09:07)
[2023-12-30] MEDS: DULoxetine HCL 20 MG CAPSULE.DR PO (09:07)
[2023-12-30] MEDS: ARTIFICIAL TEARS OPHTH SOLN 15 ML BOTTLE 1 DROP EACH EYE ×2 (09:09→16:08)
[2023-12-30] MEDS: prednisoLONE ACETATE 1% OPHTH 5 ML 1 DROP EACH EYE ×4 (09:09→20:30)
--- NOTE | 2023-12-30 10:28 | PM.IMPN ---
Progress Note: A&P Assessment and Plan (1) Acute UTI: Code(s): N39.0 - Urinary tract infection, site not specified Status: Acute Assessment and Plan: - did not meet SIRS criteria - UA: Red, turbid, 3+ protein, trace ketones, 3+ blood, 1+ bilirubin, 2+ leuks, greater than 100 RBC and WBC, no epithelial cells, 1+ bacteria - UC showed no growth - previous micro reviewed, one UC on file which showed no growth - started on Ceftriaxone on 12/27. Change to Keflex 500 mg q 12 for 7 days. - CT abdomen/pelvis: Holden catheter within the bladder with surrounding inflammatory stranding suggestive of cystitis. Correlate with urinalysis. - Monitor labs. (2) Spinal compression fracture: Qualifiers: Encounter type: subsequent encounter Code(s): M48.50XA - Collapsed vertebra, not elsewhere classified, site unspecified, initial encounter for fracture Status: Acute Assessment and Plan: - CT abdomen/pelvis: acute to subacute compression fractures at T12, L2 and L4 which are either new or have progressed since the study from one month prior. - ED spoke with on-call neuro surgical team, suggested TLSO brace with no acute interventions indicated at this time. TLSO received today. - analgesics p.r.n. - TLSO brace placed, PT post-brace placement. Patient reminded that she must wear brace when getting up and when sitting in a chair. (3) HTN (hypertension), benign: Code(s): I10 - Essential (primary) hypertension Status: Chronic Assessment and Plan: - chronic, currently 118/70 - continue home medications: Amlodipine, lisinopril - monitor Plan Diet: Heart healthy GI Prophylaxis: Not currently indicated DVT Prophylaxis: SCDs Lines: Peripheral Code Status: Full code Subjective Date/time seen: 12/30/23 10:28 Interval history: 68 y/o F presents here with chronic lower back pain with PMH of Parkinson's, dementia, CKD, depression/anxiety, cerebral aneurysm, HTN, migraines, polyneuropathy. The patient presents here from [facility] for further evaluation of low back pain. The patient reports she has been experiencing chronic lower back pain for the past 2 weeks and decreased urinary output. She describes the pain as sharp, bilateral, nonradiating, constant, aggravated by movement, and alleviated by rest/minimal movement. She reports she had a urinary catheter placed approximately 2 weeks ago due to urinary retention and has not been draining for the past X4-5 days. Decreased urinary output is accompanied by suprapubic pressure/discomfort. Endorsing body aches. Denies hematuria, fever, chills. Denies focal numbness or weakness in the LEs. ED workup showed: No leukocytosis, hemoglobin 11.5 (previously 13.0 on 11/29/2023, however baseline appears to be 10.4-11.4), no significant electrolyte derangements, creatinine 0.9 and GFR >60. UA consistent with UTI. CT of the abdomen/pelvis showed a Holden catheter within the bladder with surrounding inflammatory stranding suggestive of cystitis, and acute to subacute compression fractures of T12, L2, and L4 which are either new or progressed since the study from 1 month prior. Patient reports that back pain is a 8 , constant, and aching. Patient to receive a TLSO brace today and can afterwards begin physical therapy. WBC 5.6, H&H 10.8/33.9, BUN 20, Creatinine 0.70, GFR >60. Review of Systems Review of Systems: All systems reviewed & are unremarkable except as noted in HPI and below Exam Narrative: benign Const: General: no acute distress HENMT: Face/Nose/Sinus: Normal nares present Mouth: Yes moist mucous membranes Eyes: General: appearance normal, both eyes and all related structures Sclera: sclerae normal EOM: EOMs intact bilaterally Resp: Effort & Inspection: normal respiratory effort Auscultation: clear to auscultation bilaterally Cardio: Rate: regular rate Rhythm: regular rhythm Other: S1-S2 pres
[2023-12-30] MEDS: CEPHALEXIN 500 MG CAPSULE PO ×2 (10:53→20:29)
--- NOTE | 2023-12-30 11:05 | WPDNEUROSGCN ---
Assessment and Plan Assessment and plan (1) Compression fracture of vertebral column: Code(s): M48.50XA - Collapsed vertebra, not elsewhere classified, site unspecified, initial encounter for fracture Status: Acute Assessment and Plan: Since he is a 68-year-old female with perhaps progression and L2 compression deformity. I recommend appropriate bracing which has already been ordered and analgesics medication as well as physical and occupational therapy to increase her mobility. As an outpatient, if she fails to improve, vertebroplasty could be considered and she could be referred to Pain Management for that consideration or interventional radiology. Consult date: 12/30/23 HPI: Ruchi Vicente is a 68 year old female who has been experiencing a 2 to three-week progression of back pain in the context of also having urinary issues. She is admitted with a urinary tract infection and progression of compression fractures especially at L2. She had imaging which demonstrates a T12, L2 and L4 fracture. At T12 and L4 there inferior endplate compression deformities and at L2 a superior endplate compression deformity. The loss of height is mild to moderate and there is no retropulsion. She is not experiencing any new issues in her lower extremities. She is not having any new bowel or bladder difficulty other than the urinary tract issues related to infection that are detailed elsewhere. The pain is severe and limiting for her. Review of Systems Review of Systems: Patient denies shortness of breath, cough, nausea, vomiting, weight loss, weight gain. She has dysuria and fevers. She has back pain as above. Review of systems is otherwise negative on 12 systems except as noted elsewhere. [facility] Past Medical History Medical History Chronic kidney disease, stage 3a Depression with anxiety Dysarthria History of cerebral aneurysm HTN (hypertension), benign Hypertension Hypertensive chronic kidney disease with stage 1 through stage 4 chronic kidney disease, or unspecified chronic kidney disease Migraine Neuropathy Other chronic allergic conjunctivitis Parkinsonism Polyneuropathy, unspecified Tobacco abuse Unspecified dementia, unspecified severity, without behavioral disturbance, psychotic disturbance, mood disturbance, and anxiety Surgical History Surgical History H/O: hysterectomy History of appendectomy History of cerebral aneurysm repair History of surgery on lower extremity Hx of cholecystectomy S/P tonsillectomy and adenoidectomy Family History Family History Mother Cancer Father Emphysema lung Social History Social History Social History: She has 2 children. She smokes a pack a cigarettes a day. She is retired. She is Code status full code Years smoked: 40 Smoking status: Light tobacco smoker Tobacco type: cigarettes Second hand tobacco smoke exposure: Yes Additional smoking assessment comments: REQUEST NICOTINE PATCH Alcohol intake: former Substance use: former Substance use type: does not use Do You Feel Safe in your Home?: Yes Lack of Transportation: No Lack of Food: Never True Current Housing: I Have Housing Concerned About Future Housing: No Difficulty Paying Gas/Electric Bills: No Difficulty Paying for Meds: No Currently Unemployed: No Education: High School Diploma/GED Difficulty w/ Childcare or Family Care: No Living arrangements: senior care Additional living arrangements comments: [facility] Spiritual care concerns: No Meds Home Medications and Allergies Home Medications Medication Instructions Recorded Confirmed Type [id number] 1 tablet
[2023-12-30 14:00] VITALS: BP 129/79; PULSE 74; RESP 15; TEMP 36.4; O2SAT 95
[2023-12-30 21:22] VITALS: BP 136/78; PULSE 67; RESP 18; TEMP 36.4; O2SAT 94
[2023-12-31] MEDS: HYDROcodone/acetaminophen (*CRX) 5-325 MG TABLET 1 TAB PO ×3 (01:20→20:23)
--- NOTE | 2023-12-31 05:39 | PC.NURSE ---
Spoke with Dr. Kam about patient UO 100 ml overnight. says to wait for results of morning labs.
[2023-12-31 05:41] VITALS: BP 127/82; PULSE 68; RESP 18; TEMP 37.3; O2SAT 98
[2023-12-31 08:26] LABS: Basophils Percent Auto 0.9 % (0.2-1.2); Eosinophils Absolute Auto 0.1 K/mm3 (0-0.3); Hematocrit 33.7 % (37.0-47.0); Immature Granulocyte Absolute 0.02 K/mm3 (0.00-0.031); Immature Granulocyte Percent A 0.4 % (0-0.5); Lymphocytes Absolute Auto 1.43 K/mm3 (0.9-3.2); Lymphocytes Percent Auto 30.9 % (18.3-44.2); Mean Corpuscular HGB Conc 32.6 g/dl (32-36); Mean Corpuscular Hemoglobin 28.9 pg (26-34); Mean Corpuscular Volume 88.7 fl (80-100); Mean Platelet Volume 9.4 fl (7.4-10.4); Monocytes Absolute Auto 0.5 K/mm3 (0.1-0.6); Monocytes Percent Auto 11.4 % (2.6-8.5); Neutrophils Absolute Auto 2.5 K/mm3 (1.3-6.7); Neutrophils Percent Auto 53.4 % (45.5-73.1); Platelet Count Result 339 k/mm3 (150-375); Red Cell Distribution Width 12.8 % (11.5-14.5); White Blood Count 4.6 K/mm3 (4.5-10.0)
[2023-12-31 08:35] LABS: Alanine Aminotransferase 11 U/L (6-35); Albumin Level 3.7 g/dL (3.5-5.1); Alkaline Phosphatase 112 U/L (38-126); Anion Gap 11 mmol/L (4-12); Aspartate Amino Transferase 20 U/L (14-36); Bilirubin,Total 0.4 mg/dL (0.2-1.3); Blood Urea Nitrogen 22 mg/dL (7-17); Calcium 8.8 mg/dL (8.4-10.2); Carbon Dioxide 28 mmol/L (22-30); Chloride 95 mmol/L (98-107); Estimated CRCL calculation 55 ml/min; Estimated Glomerular Filt Rate > 60; Glucose 84 mg/dL (65-110); Potassium 3.7 mmol/L (3.4-5.0); Sodium 134 mmol/L (137-145)
[2023-12-31 09:09] VITALS: O2SAT 97
[2023-12-31] MEDS: CYANOCOBALAMIN 500 MCG TABLET PO (09:09)
[2023-12-31] MEDS: BISACODYL 5 MG TABLET EC 10 MG PO (09:09)
[2023-12-31] MEDS: prednisoLONE ACETATE 1% OPHTH 5 ML 1 DROP EACH EYE ×4 (09:09→20:24)
[2023-12-31] MEDS: lisinopriL 10 MG TABLET PO (09:09)
[2023-12-31] MEDS: DULoxetine HCL 20 MG CAPSULE.DR PO (09:09)
[2023-12-31] MEDS: amLODIPine BESYLATE 5 MG TABLET PO (09:09)
[2023-12-31] MEDS: CEPHALEXIN 500 MG CAPSULE PO ×2 (09:09→20:23)
[2023-12-31] MEDS: ARTIFICIAL TEARS OPHTH SOLN 15 ML BOTTLE 1 DROP EACH EYE ×2 (09:10→16:43)
[2023-12-31 14:00] VITALS: BP 127/84; PULSE 77; RESP 18; TEMP 36.9; O2SAT 97
--- NOTE | 2023-12-31 14:01 | PM.IMPN ---
Progress Note: A&P Assessment and Plan (1) Acute UTI: Code(s): N39.0 - Urinary tract infection, site not specified Status: Acute Assessment and Plan: - did not meet SIRS criteria - UA: Red, turbid, 3+ protein, trace ketones, 3+ blood, 1+ bilirubin, 2+ leuks, greater than 100 RBC and WBC, no epithelial cells, 1+ bacteria - UC showed no growth - previous micro reviewed, one UC on file which showed no growth - started on Ceftriaxone on 12/27. Change to Keflex 500 mg q 12 for 7 days on 12/30/23. - CT abdomen/pelvis: Holden catheter within the bladder with surrounding inflammatory stranding suggestive of cystitis. - Monitor labs. (2) Spinal compression fracture: Qualifiers: Encounter type: subsequent encounter Code(s): M48.50XA - Collapsed vertebra, not elsewhere classified, site unspecified, initial encounter for fracture Status: Acute Assessment and Plan: - CT abdomen/pelvis: acute to subacute compression fractures at T12, L2 and L4 which are either new or have progressed since the study from one month prior. - ED spoke with on-call neuro surgical team, suggested TLSO brace with no acute interventions indicated at this time. TLSO received today. - analgesics p.r.n. - TLSO brace placed, PT post-brace placement. Patient reminded that she must wear brace when getting up and when sitting in a chair. (3) HTN (hypertension), benign: Code(s): I10 - Essential (primary) hypertension Status: Chronic Assessment and Plan: - chronic, currently 127/82 - continue home medications: Amlodipine, lisinopril - monitor Plan Diet: Heart healthy GI Prophylaxis: Not currently indicated DVT Prophylaxis: SCDs Lines: Peripheral Code Status: Full code Subjective Date/time seen: 12/31/23 14:01 Interval history: 68 y/o F presents here with chronic lower back pain with PMH of Parkinson's, dementia, CKD, depression/anxiety, cerebral aneurysm, HTN, migraines, polyneuropathy. The patient presents here from [facility] for further evaluation of low back pain. The patient reports she has been experiencing chronic lower back pain for the past 2 weeks and decreased urinary output. She describes the pain as sharp, bilateral, nonradiating, constant, aggravated by movement, and alleviated by rest/minimal movement. She reports she had a urinary catheter placed approximately 2 weeks ago due to urinary retention and has not been draining for the past X4-5 days. Decreased urinary output is accompanied by suprapubic pressure/discomfort. Endorsing body aches. Denies hematuria, fever, chills. Denies focal numbness or weakness in the LEs. ED workup showed: No leukocytosis, hemoglobin 11.5 (previously 13.0 on 11/29/2023, however baseline appears to be 10.4-11.4), no significant electrolyte derangements, creatinine 0.9 and GFR >60. UA consistent with UTI. CT of the abdomen/pelvis showed a Holden catheter within the bladder with surrounding inflammatory stranding suggestive of cystitis, and acute to subacute compression fractures of T12, L2, and L4 which are either new or progressed since the study from 1 month prior. Patient reports that back pain is a 8 , constant, and aching. Patient has a TLSO brace, patient is receiving physical therapy. WBC 4.6, H&H 11.0/33.7, sodium 134, BUN 22, creatinine 0.70, GFR >60. Review of Systems Review of Systems: All systems reviewed & are unremarkable except as noted in HPI and below Exam Narrative: benign Const: General: no acute distress HENMT: Face/Nose/Sinus: Normal nares present Mouth: Yes moist mucous membranes Eyes: General: appearance normal, both eyes and all related structures Sclera: sclerae normal EOM: EOMs intact bilaterally Resp: Effort & Inspection: normal respiratory effort Auscultation: clear to auscultation bilaterally Cardio: Rate: regular rate Rhythm: regular rhythm Other: S1-S2 present without murmur, rub,
--- NOTE | 2023-12-31 16:08 | PM.DS ---
DS: Admitting Diagnosis Discharge Date 12/31/2023 Admitting Diagnosis Back pain x 2 weeks, decreased I&O DS: Discharge Diagnosis Discharge Diagnosis Plan compression fracture of vertebral column DS: Summary Hospital Course Reason for hospitalization: back pain for 2 weeks. Decreased I&O Hospital Course: 68 y/o F presents here with chronic lower back pain with PMH of Parkinson's, dementia, CKD, depression/anxiety, cerebral aneurysm, HTN, migraines, polyneuropathy. The patient presents here from [facility] for further evaluation of low back pain. The patient reports she has been experiencing chronic lower back pain for the past 2 weeks and decreased urinary output. She describes the pain as sharp, bilateral, nonradiating, constant, aggravated by movement, and alleviated by rest/minimal movement. She reports she had a urinary catheter placed approximately 2 weeks ago due to urinary retention and has not been draining for the past X4-5 days. Decreased urinary output is accompanied by suprapubic pressure/discomfort. Endorsing body aches. Denies hematuria, fever, chills. Denies focal numbness or weakness in the LEs. ED workup showed: No leukocytosis, hemoglobin 11.5 (previously 13.0 on 11/29/2023, however baseline appears to be 10.4-11.4), no significant electrolyte derangements, creatinine 0.9 and GFR >60. UA consistent with UTI. CT of the abdomen/pelvis showed a Holden catheter within the bladder with surrounding inflammatory stranding suggestive of cystitis, and acute to subacute compression fractures of T12, L2, and L4 which are either new or progressed since the study from 1 month prior. Neuro consult on 12/30/23 stated: Ruchi Vicente is a 68 year old female who has been experiencing a 2 to three-week progression of back pain in the context of also having urinary issues. She is admitted with a urinary tract infection and progression of compression fractures especially at L2. She had imaging which demonstrates a T12, L2 and L4 fracture. At T12 and L4 there inferior endplate compression deformities and at L2 a superior endplate compression deformity. The loss of height is mild to moderate and there is no retropulsion. She is not experiencing any new issues in her lower extremities. She is not having any new bowel or bladder difficulty other than the urinary tract issues related to infection that are detailed elsewhere. The pain is severe and limiting for her. Patient reports that back pain is a 8 , constant, and aching. Patient has a TLSO brace, patient is receiving physical therapy. Patient will be discharged back to [facility] where she is a resident. Status at Discharge Functional status at discharge: uses cane/walker Overall status at discharge: patient is progressing back to baseline Time Spent with Patient Time attestation: Total time spent providing and/or coordinating discharge services: Time spent: Greater than 30 minutes Exam Narrative: Const: General: no acute distress HENMT: Face/Nose/Sinus: N ormal nares presen t Mouth: Yes mois t mucous membranes Eyes: General: appearanc e normal, both eye s and all related structures Sclera : sclerae normal EOM: EOMs intact b ilaterally Resp: Effort & Inspectio n: normal respirat ory effort Auscul tation: clear to a uscultation bilate rally Cardio: Rate: regular rate Rhythm: regular rhythm Other: S 1-S2 present witho ut murmur, rub, ec topy GI: Other:
[2023-12-31 20:25] VITALS: BP 137/78; PULSE 70; RESP 14; TEMP 36.9; O2SAT 96
== END 2023-12-31 20:35 | DRG 544 ==
LOC: ANHED 08:25 → ANH3MEDSUR 13:43
PROVIDERS: Student in an Organized Health Care Education/Training Program; Admitting Provider Internal Medicine; Emergency Provider Emergency Medicine; PCP Hospitalist; Visit Provider Nurse Practitioner Family
DX: M48.56XA Collapsed vertebra, not elsewhere classified, lumbar region, initial encounter for fracture (principal); F41.8 Other specified anxiety disorders; G62.9 Polyneuropathy, unspecified; I12.9 Hypertensive chronic kidney disease with stage 1 through stage 4 chronic kidney disease, or unspecified chronic kidney disease; N18.31 Chronic kidney disease, stage 3a; F03.90 Unspecified dementia, unspecified severity, without behavioral disturbance, psychotic disturbance, mood disturbance, and anxiety; G20.A1 Parkinson's disease without dyskinesia, without mention of fluctuations; Z90.49 Acquired absence of other specified parts of digestive tract; Z90.710 Acquired absence of both cervix and uterus
CPT/HCPCS: 36415; 72131; 74176; 80048; 80053; 81001; 83690; 83735; 85025; 87086; 87088; 96361; 96365; 97110; 97116; 97161; 97530; 99285; A9270; G0378; J0696; J7030

== ENCOUNTER 2024-07-14 01:14 | Day surgery (SDC) | payer MEDICARE, MEDICAID, SELFPAY ==
[2024-07-09 15:40] VITALS: BMI 21.2
--- OUTSIDE RECORDS SUMMARY | 2024-07-14 01:16 | XMS_ITS | Clinical Summary ---
Author Organization [facility] [employer] 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 This disclosure is being madepursuant to the Care Everywhere program and may not contain all information available regarding this patient. Last updated 18.[facility] [employer] Allergies Active Allergy Reactions Criticality Noted Date Comments Prochlorperazine 11/18/2010 Dystonic reaction Medications * Be aware that medications may not be up to date on this document. Alwaysverify current medications with the patient. Medication Sig Dispensed Refills Start Date End Date Status Lxikdzu-Unyafzzsmllfw-K affeine (EXCEDRIN MIGRAINE PO) Take 1 Tab by mouth as needed. Active Active Problems Problem Noted Date Diagnosed Date Slurring of speech 02/08/2012 TIA (transient ischemic attack) 02/08/2012 HTN (hypertension), malignant 02/08/2012 Nausea without vomiting 02/08/2012 Overview (01/12/2015): Tobacco abuse 02/08/2012 Focal neurological deficit 02/08/2012 Fever 11/18/2010 Social History Tobacco Use Types Packs/Day Years Used Date Smoking Tobacco: Every Day Cigarettes Smokeless Tobacco: Never Tobacco Cessation:Ready to Q uit: No; Counseling Given: Yes Alcohol Use Standard Drinks/Week Comments Yes 0 (1 standard drink = 0.6 oz pur e alcohol) rarely Sex and Gender Information Value Date Recorded Sex Assigned at Not on file Gender Identity Not on file Sexual Orientation Not on file Last Filed Vital Signs Vital Sign Reading Time Taken Comments Blood Pressure 156/95 10/22/2021 7:45 PM CDT Pulse 110 10/22/2021 12:57 PM CDT Temperature 37.1 C (98.8 F) 10/22/2021 12:57 PM CDT Respiratory Rate 17 10/22/2021 12:57 PM CDT Oxygen Saturation 99% 10/22/2021 6:00 PM CDT Inhaled Oxygen Concentration - - Weight 48.3 kg (106 lb 7.7 oz) 10/22/2021 12:57 PM CDT Height 162.6 cm (5' 4 ) 10/22/2021 12:57 PM CDT Body Mass Index 18.28 10/22/2021 12:57 PM CDT Plan of Treatment Health Maintenance Due Date Last Done Comments BONE DENSITY TESTING 1955 COLOGUARD (AGES 45-75) - COL ON CA SCREENING 1956 COLON MONITORING 1956 COLONOSCOPY - COLON CA SCREENING 1956 CT COLONOGRAPHY - COLON CA SCREENING 1955 Colorectal Cancer Screening 1955 FIT - COLON CA SCREENING 1956 FLEX SIG - COLON CA SCREENING 1955 MAMMOGRAM 1955 MEDICARE AWV 12 MONTHS 1955 HEPATITIS C SCREENING 06/25/1974 DTAP/TDAP/TD VACCINES (1 - Tdap) 06/30/1975 PNEUMOCOCCAL VACCINE 50+ (1 of 2 - PCV) 06/30/1975 ZOSTER VACCINE (1 of 2) 2006 LIPID TESTING 02/08/2017 02/09/2012 COVID-19 VACCINE (3 - 2023-2 5 season) 2023 09/03/2020, 08/08/2020 INFLUENZA VACCINE (#1) 2023 DEPRESSION SCREENING 04/14/2024 Respiratory Syncytial Virus (RSV) Vaccine Pt: or over 60 yrs (1 - 1-dose 75+ series) 06/30/2031 HEPATITIS B VACCINE Aged Out No longe r eligible based on patient's age to complete this topic HIB VACCINE Aged Out No longer eligi ble based on patient's age to complete this topic HPV VACCINE Aged Out No longer eligi ble based on patient's age to complete this topic MENINGOCOCCAL (Group B) VACCINE SHARED DECISION-MAKING Aged Out No longer eligible based on patient's age to complete this topic MENINGOCOCCAL GROUPS A/C/Y/W VACCINE Aged Out No longer eligible b ased on patient's age to complete this topic Procedures Procedure Name Priority Date/Time Associated Diagnosis Comments LIPID PROFILE Routine 02/09/2012 4:11 AM CDT from Last 3 Months or Most Recently Relevant to Health Maintenance Results * LIPID PROFILE (02/09/2012 4:11 AM CDT) Cholesterol 151 <200 mg/dl [facility] Triglycerides 70 10 - 210 mg/dl [facility] HDL Cholesterol 52 >40 mg/dl [facility] LDL Direct 78 <130 mg/dl [facility] Blood specimen (specimen) BLOOD SPECIMEN / Unknown 02/09/2012 4:11 AM CDT 02/09/2012 5:02 AM CDT Yarelis Dunn DO LAB - CHEMISTRY OLENA HICKMAN [facility] [address] [place] [id number] from Last 3 Months or Most Recently Relevant to Health Maintenance Advance Directives Documents on File Type Date Recorded 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
--- OUTSIDE RECORDS SUMMARY | 2024-07-14 01:16 | XMS_ITS ---
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 unit/0.1 mL intradermal injection solution 0.1 ml VIAL (ML) Intradermal 1 Time Weekly for 2 Weeks Indication: tb test 1st injection on admission, then one week after. Read between 48 and 72 hours FriOct 14 12:00:00 EDT 2022Oct 28 11:59:00 EDT 2022 TUBErsoL 5 tub. unit/0.1 mL intradermal injection solution Read Results VIAL (ML) Other 1 Time Weekly for 2 Weeks Indication: tb test Read results between 48-72 hours after 1st and 2nd (1 week apart). If positive do chest x-ray. FriOct 14 09:00:00 EDT 2022Oct 28 08:59:00 EDT 2022 carbidopa 25 mg-levodopa 100 mg tablet 1 tablet TABLET Oral 1 Time Daily for 4 Days Indication: Parkinsons FriOct 12 07:00:00 EDT 2022Oct 16 06:59:00 EDT 2022 carbidopa 25 mg-levodopa 100 mg tablet 1 tablet TABLET Oral 2 Times Daily for 3 Days Indication: Parkinsons FriOct 16 07:00:00 EDT 2022Oct 19 06:59:00 EDT 2022 carbidopa 25 mg-levodopa 100 mg tablet 1 tablet TABLET Oral 3 Times Daily Indication: Parkinsons FriOct 19 07:00:00 EDT 2022Nov 01 01:00:00 EDT 2022 hydroCHLOROthiazide 12.5 mg tablet 1 tablet TABLET Oral 2 Times Daily Indication: HTN FriOct 11 17:00:00 EDT 2022Nov 01:00:00 EDT 2022 hhwgajozeh-gcvezdoxclriu-hsx woodrow ne 50 mg-325 mg-40 mg tablet 1 tablet TABLET Oral PRN Every 4 Hours Indication: CAIN FriOct 11 18:00:00 EDT 2022Nov 01:00:00 EDT 2022 lisinopriL 20 mg tablet 1 tablet TABLET Oral 1 Time Daily Indication: HTN FriOct 11 18:00:00 EDT 2022Nov 01:00:00 EDT 2022 gabapentin 300 mg capsule 1 capsule CAPS ULE Oral 3 Times Daily Indication: Neuropathy FriOct 11 18:00:00 EDT 2022Nov 01:00:00 EDT 2022 QUEtiapine 25 mg tablet 12.5mg TABLET Or al 1 Time Daily Indication: Anxiety FriOct 11 19:00:00 EDT 2022Nov 01:00:00 EDT 2022 ergocalciferol (vitamin D2) 1,250 mcg (50,000 unit) capsule 1 capsule CAPSULE Oral 1 Time Weekly Indication: Vitamin D deficiency FriOct 11 19:00:00 EDT 2022Nov 01:00:00 EDT 2022 FLUoxetine 40 mg capsule 1 capsule CAPSU LE Oral 1 Time Daily Indication: Depression FriOct 11 17:00:00 EDT 2022Nov 01 01:00:00 EDT 2022 QUEtiapine 50 mg tablet 1 tablet TABLET Oral 1 Time Daily Indication: Anxiety FriOct 11 19:00:00 EDT 2022Nov 01:00:00 EDT 2022 nicotine 21 mg/24 hr daily transdermal patch 1 patch PATCH, TRANSDERMAL 24 HOURS Transdermal 1 Time Daily Indication: Remove old patch before placing new patch on, rotate sites d/t smoking cessationIF PATIENT SMOKES REMOVE PATCH & DC ORDER FriOct 11 20:00:00 EDT 2022Nov 01 01:00:00 EDT 2022 Problems Active Concerns * Urinary tract infection, site not specified* Code: * Start Date: FriOct 11 00:00:00 EDT 2022 * End Date: * Text: * Repeated falls* Code: * Start Date: FriOct 11 00:00:00 EDT 2022 * End Date: * Text: * Tobacco use* Code: * Start Date: FriOct 11 00:00:00 EDT 2022 * End Date: * Text: * Polyneuropathy, unspecified* Code: * Start Date: FriOct 11 00:00:00 EDT 2022 * End Date: * Text: * Weakness* Code: * Start Date: FriOct 11 00:00:00 EDT 2022 * End Date: * Text: * Unsteadiness on feet* Code: * Start Date: FriOct 11 00:00:00 EDT 2022 * End Date: * Text: * Major depressive disorder, single episode, unspecified* Code: * Start Date: FriOct 11 00:00:00 EDT 2022 * End Date: * Text: * Generalized anxiety disorder* Code: * Start Date: FriOct 11 00:00:00 EDT 2022 * End Date: * Text: * Personal history of other diseases of the circulatory system* Code: * Start Date: FriOct 11 00:00:00 EDT 2022 * End Date: * Text: * Migraine, unspecified, not intractable, without status migrainosus* Code: * Start Date: FriOct 11 00:00:00 EDT 2022 * End Date: * Text: * Vitamin D deficiency, unspecified* Code: * Start Date: FriOct 11 00:00:00 EDT 2022 * End Date: * Text: * Unspecified fall, subsequent encounter* Code: * Start Date: FriOct 11 00:00:00 EDT 2022 * End Date: * Text: * Hypotension, unspecified* Code: * Start Date: FriOct 11 00:00:00 EDT 2022 * End Date: * Text: * Hypertensive chronic kidney disease with stage 1 through stage 4 chronic kidney disease, or unspecified chronic kidney disease* Code: * Start Date: FriOct 11 00:00:00 EDT 2022 * End Date: * Text: * Chronic kidney disease, stage 3a* Code: * Start Date: FriOct 11 00:00:00 EDT 2022 * End Date: * Text: Reason for Referral Past Medical History Resolved Concerns * Problem Essential (primary) hypertension* Code: * Start Date: FriOct 11 00:00:00 EDT 2022 * End Date: FriOct 30 00:00:00 EDT 2022
--- OUTSIDE RECORDS SUMMARY | 2024-07-14 01:16 | XMS_ITS | Clinical Summary ---
Author Organization [facility] Address [address] [place] [address] Care Team Providers Care Medical Affairs Specialist Name Role Phone None, Provider MD Primary Care Provider Unavaila ble Allergies Active Allergy Reactions Criticality Noted Date Comments Codeine Unknown 09/06/2023 Prochlorperazine Unknown 03/06/2022 Medications hydroCHLOROthiazid e (MICROZIDE) 12.5 MG capsuleIndications :Hypertension Take 1 capsule by mouth 2 (two) times daily. Indications: High Blood Pressure Disorder 09/28/19 22 Active gabapentin (NEURONTIN) 300 MG capsuleIndications :Neuropathy Take 1 capsule by mouth 3 (three) times daily. Indications: Nerve Disease 02/10/20 22 Active QUEtiapine (SEROQUEL) 25 MG tabletIndications: Depression Take 0.5 tablets (12.5 mg total) by mouth nightly at bedtime. 45 tablet 03/15/20 22 Active WALKER MISC, DME,Indications:Fa ll, initial encounter,Shufflin g gait,Gait abnormality,Balanc e problem Please dispense 1 rollator walker 1 Device 05/15/19 23 Active vitamin D2, ergocalciferol, (DRISDOL) 1.25 mg capsuleIndications :Vitamin D Deficiency [The details of the medication are not available because there are pending changes by a home health clinician.] 12 capsule 3 08/03/19 23 Active Additional Information Patient taking differently:50,000 Units Oral Every 7 days,Weekly on , Indications: Vitamin D Deficiency, Reported on 08/24/2022 QUEtiapine (SEROQUEL) 50 MG tabletIndications: Depression Take 1 tablet by mouth. Indications: Depression Pt is also taking 12.5mg qam 08/09/19 23 Active FLUoxetine (PROZAC) 40 MG capsuleIndications :Depression Take 1 capsule by mouth daily. Indications: Depression Rx'd by psych ([facility]) Active FLUoxetine (PROZAC) 10 MG tabletIndications: Major Depressive Disorder Take 10 mg by mouth daily. Indications: Major Depressive Disorder 08/22/19 23 Active butalbital-acetami nophen-caffeine (ESGIC) 50-325-40 MG tabletIndications: Headache Take 1 tablet by mouth every 4 (four) hours as needed. Indications: Headache 08/25/19 23 Active amLODIPine (NORVASC) 5 MG tablet Take 1 tablet (5 mg total) by mouth daily. 30 tablet 09/07/19 24 Active lisinopril (PRINIVIL) 10 MG tablet Take 1 tablet (10 mg total) by mouth daily. 30 tablet 09/07/19 24 Active ondansetron (ZOFRAN-ODT) 4 MG disintegrating tablet Take 1 tablet (4 mg total) by mouth every 8 (eight) hours as needed for Nausea. 20 tablet 09/07/19 24 Active Active Problems Problem Noted Date Diagnosed Date Not ready to quit smoking 08/20/2022 Cognitive changes 08/20/2022 Severe depression ([facility]) 03/10/2022 History of suicide attempt 03/10/2022 Slurred speech 03/10/2022 History of aneurysm 03/10/2022 Smoker 03/10/2022 Immunizations Name Administration Dates Next Due Fluzone High Dose - >Age 65 (Prefilled Syringe) 01/16/2022 Pneumococcal (Prevnar 20) 05/15/2022 Family History Medical History Relation Comments Cancer Mother Relation Status Comments Mother Social History Tobacco Use Types Packs/Day Years Used Date Smoking Tobacco: Every Day Cigarettes 0.1 50 Smokeless Tobacco: Never Tobacco Cessation:Ready to Q uit: Yes; Counseling Given: Yes Comments:Smokes 3 cigs per day. 08/20/22 Alcohol Use Standard Drinks/Week Comments Never 0 (1 standard drink = 0.6 oz pur e alcohol) OASIS D0700: Social Isolation Answer Da te Recorded Frequency of experiencing loneliness or isolatio n Never 08/24/2022 OASIS A1250: Transportation Answer Date Recorded Lack of Transportation (Medical) No 08/24/2022 Lack of Transportation (Non-Medical) No 08/24/2022 Patient Unable or Declines to Respond No 08/24/2022 OASIS B1300: Health Literacy Answer Doug e Recorded Frequency of needing help to read materials from doctor or pharmacy Never 08/24/2022 PHQ-2 Answer Date Recorded Patient Health Questionnaire-2 Score 3 05/15/2022 Comments No Sex and Gender Information Value Date Recorded Sex Assigned at Not on file 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 Gender Identity Not on file Sexual Orientation Not on file Last Filed Vital Signs Vital Sign Reading Time Taken Comments Blood Pressure 141/70 09/07/2023 5:00 AM CDT Pulse 62 09/07/2023 5:00 AM CDT Temperature 36.5 C (97.7 F) 09/06/2023 11:00 PM CDT Respiratory Rate 16 09/07/2023 5:00 AM CDT Oxygen Saturation 93% 09/07/2023 5:00 AM CDT Inhaled Oxygen Concentration - - Weight 53.8 kg (118 lb 9.7 oz) 09/06/2023 11:00 PM CDT Height 157.5 cm (5' 2 ) 09/06/2023 11:00 PM CDT Body Mass Index 21.69 09/06/2023 11:00 PM CDT Plan of Treatment Health Maintenance Due Date Last Done Comments Colorectal Cancer Screening Colonoscopy (10 Years) 1956 Hepatitis C 1974 DTaP, Tdap and Td Vaccines ( 1 - Tdap) 06/30/1975 Mammogram Screening 1996 Zoster Vaccines (1 of 2) 2006 Annual Medicare Wellness Visit 2021 Dexa Scan (General) 2021 COVID-19 Vaccine (1 - 2023-2 5 season) 2023 PHQ-2 (Physician [place]) 04/14/2024 RSV Immunization or 60+ Years (1 - 1-dose 75+ series) 06/30/2031 Pneumococcal Vaccine: 65+ Years Completed Meningococcal B Vaccine Aged Out No l onger eligible based on patient's age to complete this topic Meningococcal Vaccine Aged Out No kenna cece eligible based on patient's age to complete this topic RSV Immunizations Under 20 Months Aged Out No longer eligible based on patient's age to complete this topic Insurance MEDICARE MEDICAID Advance Directives * Full Code (Latest Code Status on File) Date Activated Date Inactivated Comments 08/24/2022 1:53 PM 09/06/2023 10:48 PM Care Teams Medical Affairs Specialist Relationship Specialty Start Date End Date None, Provider, PCP - General UNKNOWN PHYSICIAN SPECIALTY 09/07/23
[2024-07-14 10:16] VITALS: BP 145/91; PULSE 80; RESP 18; TEMP 36.1; O2SAT 100; BMI 21.2
--- NOTE | 2024-07-14 10:30 | P.HP_ITS ---
History of Present Illness History of Present Illness Consent: Risks, benefits, and alternatives have been discussed and questions answered. Patient agrees to proceed with procedure. Chief complaint: Epigastric pain,Dysphagia Narrative: Ruchi Vicente is a 69 year old female here for EGD. She has h/o of dementia, parkinsonism, cerebral aneurysm, dysarthria, and TIA who presents to the office today for evaluation of difficulty with swallowing and speech. She was referred by neurologist Dr. Aguirre. She has been residing in [facility] for the past year due to dementia. History obtained from records. ENT evaluation no major findings based on chart. Review of Systems Review of Systems: ROS unobtainable: Yes unobtainable due to mental status PMFSH Past Medical History Medical History (Updated 07/13/24 @ 13:26 by Travis Mcgrath DO) CKD (chronic kidney disease) Dementia Epigastric discomfort Dysarthria Other chronic allergic conjunctivitis Polyneuropathy, unspecified Chronic kidney disease, stage 3a Hypertensive chronic kidney disease with stage 1 through stage 4 chronic kidney disease, or unspecified chronic kidney disease Unspecified dementia, unspecified severity, without behavioral disturbance, psychotic disturbance, mood disturbance, and anxiety Parkinsonism Depression with anxiety Neuropathy HTN (hypertension), benign Migraine Tobacco abuse History of cerebral aneurysm Hypertension Surgical History Surgical History H/O: hysterectomy History of appendectomy S/P tonsillectomy and adenoidectomy Hx of cholecystectomy History of surgery on lower extremity History of cerebral aneurysm repair Family History Family History Mother Cancer Father Emphysema lung Social History Social History Social History: She has 2 children. She smokes a pack a cigarettes a day. She is retired. She is Code status full code Smoking packs per day: 1 Smoking cigarettes per day: 20.0 Years smoked: 40 Smoking pack-years: 40.00 Smoking status: Light tobacco smoker Tobacco type: cigarettes Second hand tobacco smoke exposure: Yes Additional smoking assessment comments: REQUEST NICOTINE PATCH Alcohol intake: former Substance use: former Substance use type: does not use Do You Feel Safe in your Home?: Yes Lack of Transportation: No Lack of Food: Never True Current Housing: I Have Housing Concerned About Future Housing: No Difficulty Paying Gas/Electric Bills: No Difficulty Paying for Meds: No Currently Unemployed: No Education: High School Diploma/GED Difficulty w/ Childcare or Family Care: No Living arrangements: skilled nursing Additional living arrangements comments: [facility] [place] ([facility]) Spiritual care concerns: No Meds Home Medications and Allergies Home Medications ?Medication ?Instructions ?Recorded ?Confirmed ?Type vatxbpwzeq-ijrgggmyybnwi-zuegjctb 1 tablet PO Q4H PRN Headache 10/06/22 07/09/24 History 50 mg-325 mg-40 mg tablet acetaminophen 325 mg capsule 650 mg PO Q6H PRN Pain 12/19/22 07/09/24 History midodrine 2.5 mg tablet 2.5 mg PO Q8H PRN orthostatic 12/19/22 07/09/24 History hypotension ondansetron 4 mg disintegrating 4 mg PO Q6H PRN Nausea And Vomiting 04/23/23 07/09/24 History tablet polyethylene glycol 3350 17 17 g PO DAILY #119 grams 11/29/23 07/14/24 Rx gram/dose oral powder (Miralax) psyllium husk 0.4 gram capsule 0.4 g PO DAILY #30 caps 11/29/23 07/14/24 Rx (Metamucil) amlodipine 5 mg tablet 5 mg PO DAILY 12/28/23 07/14/24 History bisacodyl 10 mg rectal suppository 10 mg RECTAL DAILY PRN Pain 12/28/23 07/09/24 History (Dulcolax (bisacodyl)) carboxymethylcellulose sodium 1 % 1 drp EACH EYE BID 12/28/23 07/14/24 History eye drops (Artificial Tears (carboxymethylcellulose)) cromolyn 4 % eye drops 2 drp EACH EYE QID 12/28/23 07/14/24 History duloxetine 20 mg capsule,delayed 40 mg PO DAILY 12/28/23 07/14/24 History release lisinopril 10 mg tablet 10 mg PO DAILY 12/28/23 07/14/24 History magnesium hydroxide 400 mg/5 mL 30 ml PO DAILY PRN Constipation 12/28/2307/09 History oral suspension (Milk of Magnesia) methimazole 5 mg tablet 5 mg PO DAILY 05/10/24 07/14/24 History tramadol 50 mg tablet 50 mg PO Q6H PRN pain 05/10/24 07/14/24 History Allergies Allergy/AdvReac Type Severity Reaction Status Date / Time prochlorperazine (From Allergy Unknown Verified 07/14/24 10:22 Compazine) codeine AdvReac Confusion Verified 07/14/24 10:22 Vital Signs Vital Signs - 24 hr 07/14/24 10:16 Temperature 96.9 F L Pulse Rate 80 Respiratory Rate 18 Blood Pressure 145/91 H Pulse Oximetry 100 Oxygen Delivery Room Air Exam Const: General: cooperative HENMT: Head: normal to inspection Eyes: General: appearance normal, both eyes and all related structures Neck: Neck: normal visual inspection Assessment and Plan Assessment and plan (1) Dysphagia: Code(s): R13.10 - Dysphagia, unspecified Status: Acute Assessment and Plan: egd to assess if stricture, etc wonder if could be due to underlying neurological condition (2) Dementia: Code(s): F03.90 - Unspecified dementia, unspecified severity, without behavioral disturbance, psychotic disturbance, mood disturbance, and anxiety Status: Acute
--- NOTE | 2024-07-14 10:30 | P.PNAN_ITS ---
Anes - Initial Pre Proc Eval Procedure: Operation Date: 07/14/24 11:00 Proposed Procedures p Esophagogastroduodenoscopy - Edward Blanton MD Date/Time: 07/14/24 10:30 Surgeon: Ewdard Blanton MD Pre Op Diagnosis: Epigastric pain,Dysphagia Patient Data Age: 69 Gender: F Height: 1.6 m Weight: 54.4 kg Last Vital Signs Temp 36.1 C L 07/14/24 10:16 Pulse 80 07/14/24 10:16 Resp 18 07/14/24 10:16 BP 145/91 H 07/14/24 10:16 Pulse Ox 100 07/14/24 10:16 O2 Del Method Room Air 07/14/24 10:16 Allergies Allergy/AdvReac Type Severity Reaction Status Date / Time prochlorperazine (From Allergy Unknown Verified 07/14/24 10:22 Compazine) codeine AdvReac Confusion Verified 07/14/24 10:22 Home Medications ?Medication ?Instructions ?Recorded ?Confirmed ?Type vpnhilbhxk-wwvakfntzfdyu-vovupmqb 1 tablet PO Q4H PRN Headache 10/06/22 07/09/24 History 50 mg-325 mg-40 mg tablet acetaminophen 325 mg capsule 650 mg PO Q6H PRN Pain 12/19/22 07/09/24 History midodrine 2.5 mg tablet 2.5 mg PO Q8H PRN orthostatic 12/19/22 07/09/24 History hypotension ondansetron 4 mg disintegrating 4 mg PO Q6H PRN Nausea And Vomiting 04/23/23 07/09/24 History tablet polyethylene glycol 3350 17 17 g PO DAILY #119 grams 11/29/23 07/14/24 Rx gram/dose oral powder (Miralax) psyllium husk 0.4 gram capsule 0.4 g PO DAILY #30 caps 11/29/23 07/14/24 Rx (Metamucil) amlodipine 5 mg tablet 5 mg PO DAILY 12/28/23 07/14/24 History bisacodyl 10 mg rectal suppository 10 mg RECTAL DAILY PRN Pain 12/28/23 07/09/24 History (Dulcolax (bisacodyl)) carboxymethylcellulose sodium 1 % 1 drp EACH EYE BID 12/28/23 07/14/24 History eye drops (Artificial Tears (carboxymethylcellulose)) cromolyn 4 % eye drops 2 drp EACH EYE QID 12/28/23 07/14/24 History duloxetine 20 mg capsule,delayed 40 mg PO DAILY 12/28/23 07/14/24 History release lisinopril 10 mg tablet 10 mg PO DAILY 12/28/23 07/14/24 History magnesium hydroxide 400 mg/5 mL 30 ml PO DAILY PRN Constipation 12/28/23 07/09/24 History oral suspension (Milk of Magnesia) methimazole 5 mg tablet 5 mg PO DAILY 05/10/24 07/14/24 History tramadol 50 mg tablet 50 mg PO Q6H PRN pain 05/10/24 07/14/24 History Patient hx anesthesia problems: none Family hx anesthesia problems: none Results Review: All pre-operative results and documents have been reviewed as part of the pre- operative evaluation. [facility] Past Medical History Medical History (Updated 07/13/24 @ 13:26 by Travis Mcgrath DO) CKD (chronic kidney disease) Dementia Epigastric discomfort Dysarthria Other chronic allergic conjunctivitis Polyneuropathy, unspecified Chronic kidney disease, stage 3a Hypertensive chronic kidney disease with stage 1 through stage 4 chronic kidney disease, or unspecified chronic kidney disease Unspecified dementia, unspecified severity, without behavioral disturbance, psychotic disturbance, mood disturbance, and anxiety Parkinsonism Depression with anxiety Neuropathy HTN (hypertension), benign Migraine Tobacco abuse History of cerebral aneurysm Hypertension Surgical History Surgical History H/O: hysterectomy History of appendectomy S/P tonsillectomy and adenoidectomy Hx of cholecystectomy History of surgery on lower extremity History of cerebral aneurysm repair Family History Family History Mother Cancer Father Emphysema lung Social History Social History Social History: She has 2 children. She smokes a pack a cigarettes a day. She is retired. She is Code status full code Smoking packs per day: 1 Smoking cigarettes per day: 20.0 Years smoked: 40 Smoking pack-years: 40.00 Smoking status: Light tobacco smoker Tobacco type: cigarettes Second hand tobacco smoke exposure: Yes Additional smoking assessment comments: REQUEST NICOTINE PATCH Alcohol intake: former Substance use: former Substance use type: does not use Do You Feel Safe in your Home?: Yes Lack of Transportation: No Lack of Food: Never True Current Housing: I Have Housing Concerned About Future Housing: No Difficulty Paying Gas/Electric Bills: No Difficulty Paying for Meds: No Currently Unemployed: No Education: High School Diploma/GED Difficulty w/ Childcare or Family Care: No Living arrangements: alf Additional [facility] arrangements comments[facility]) Spiritual care concerns: No Anes - Eval Final PreProcedure Day of Procedure 07/14/24 10:30 Patient weight: normal Heart: regular rate and rhythm Lungs: clear to auscultation and normal air movement Airway: Mallampati scale class II Neurological: alert and oriented Last oral intake: >/= 8 hours ASA classification: III Emergent: no Anesthetic plan: proceed Anesthesia type and monitoring: general GIVS and standard monitoring Results Review: All pre-operative results and documents have been reviewed as part of the pre- operative evaluation. Informed Consent: The patient's anesthetic plan and its attendant risks and benefits were discussed with the patient/family/POA. Questions were solicited and answers provided to the satisfaction of the patient/family/POA.
[2024-07-14] MEDS: LACTATED RINGERS 1,000 ML 150 ML IV CONT (10:38)
[2024-07-14 10:47] VITALS: BP 141/73; PULSE 90; RESP 20; O2SAT 100
[2024-07-14 10:57] VITALS: BP 128/68; PULSE 86; RESP 24; O2SAT 100
[2024-07-14 11:00] VITALS: BP 135/66; PULSE 69; RESP 27; O2SAT 100
== END 2024-07-14 11:40 | disposition home or self-care (01) ==
PROVIDERS: Referring Provider Nurse Practitioner Family; Visit Provider Internal Medicine Gastroenterology
PROC: 0DJ08ZZ Inspection of Upper Intestinal Tract, Via Natural or Artificial Opening Endoscopic (ICD-10-PCS; CPT 43235; principal; 2024-07-14 11:00)
DX: R13.10 Dysphagia, unspecified (principal); F03.90 Unspecified dementia, unspecified severity, without behavioral disturbance, psychotic disturbance, mood disturbance, and anxiety; I12.9 Hypertensive chronic kidney disease with stage 1 through stage 4 chronic kidney disease, or unspecified chronic kidney disease; N18.31 Chronic kidney disease, stage 3a; H10.45 Other chronic allergic conjunctivitis; G62.9 Polyneuropathy, unspecified; G20.C Parkinsonism, unspecified; F17.210 Nicotine dependence, cigarettes, uncomplicated; F41.8 Other specified anxiety disorders; Z79.891 Long term (current) use of opiate analgesic; Z98.890 Other specified postprocedural states; Z90.49 Acquired absence of other specified parts of digestive tract; Z86.79 Personal history of other diseases of the circulatory system; Z80.9 Family history of malignant neoplasm, unspecified
CPT/HCPCS: 43235; J2704; J7120